=== PATIENT | female | born 1960 | race Caucasian/White ===

== ENCOUNTER 2018-06-26 08:10 | Day surgery (SDC) | payer OTHER ==
[2018-06-23 11:18] VITALS: BMI 34.3
[2018-06-26] MEDS ORDERED: PROPOFOL 200 MG/20 ML VIAL ONE (15:27)
--- NOTE | 2018-06-26 17:23 | OP ---
DATE OF PROCEDURE: 06/26/2018 PREPROCEDURE DIAGNOSES: 1. Cirrhosis, history of variceal bleeding few months ago, here for followup esophagogastroduodenoscopy and secondary prophylaxis banding if indicated. 2. Screening colonoscopy. POSTPROCEDURE DIAGNOSES: 1. No evidence of esophageal varices. 2. Portal gastropathy, nonbleeding. 3. Normal duodenum. 4. No evidence of gastric varices. 5. Colonoscopy notable for diminutive polyp in the sigmoid colon removed by hot snare polypectomy, but not retrieved secondary to poor prep. 6. Poor prep limiting evaluation to about two-thirds of the colon, could not rule out lesions in the other areas. These areas were contaminated with which could not be suctioned or irrigated from the colon. RECOMMENDATIONS: 1. Repeat colonoscopy in 1 year. 2. Repeat EGD in 6 months. 3. Follow up in the office in 1 month. 4. Acute followup with [facility], Dr. Lee as already scheduled. 5. Continues present medications. PROCEDURE IN DETAIL: The patient was informed of the risks, benefits, and possible complications of endoscopy including perforation, reaction for medication, and aspiration. Informed consent was obtained. The patient was brought to the endoscopy suite, where she was sedated by anesthesia. Once she was comfortable, a bite block was placed inside her orifice. The endoscope was advanced to the esophagus, stomach, and second and third portion of the duodenum and slowly removed. The esophagus notable for some scars in the lower esophagus, but no overt varices. The stomach was entered and found to show signs of portal hypertensive gastropathy with snake skinning of the mucosa. There was no bleeding or oozing with contact or spontaneously. Retroflexed views revealed no evidence of varices. The pyloric channel was entered. The duodenum was found to be normal at third portion. The scope was then brought back into the stomach and the stomach was again surveyed in forward and retroflexed views. These were normal except for the portal gastropathy and the scope was removed. The patient was turned to the room and rectal examination was performed, which was normal. The endoscope was advanced to the anal canal through the colon to the cecum, which was identified by the appendiceal orifice and the ileocecal valve. The prep was poor. Attempts at irrigation with a liter of fluid were unsuccessful as there was quite a bit of formed material, which just could not be suctioned away. One polyp was seen in the sigmoid colon and removed by snare polypectomy. It was notably retrieved. It was about 3 mm in size. Retroflexed views just showed contamination of stool in the bowel. The scope was removed. The patient tolerated the procedure well. There were no complications. Job ID: [id number]
== END 2018-06-26 11:52 | disposition home or self-care (01) ==
LOC: SDC 08:10
PROVIDERS: ATTEND Internal Medicine Gastroenterology
PROC: 0DJ08ZZ Inspection of Upper Intestinal Tract, Via Natural or Artificial Opening Endoscopic (ICD-10-PCS; principal; 2018-06-26)
PROC: 0DBN8ZX Excision of Sigmoid Colon, Via Natural or Artificial Opening Endoscopic, Diagnostic (ICD-10-PCS; principal; 2018-06-26)
DX: Z12.11 Encounter for screening for malignant neoplasm of colon (principal); K63.5 Polyp of colon; K70.30 Alcoholic cirrhosis of liver without ascites; K76.6 Portal hypertension; K31.89 Other diseases of stomach and duodenum; G89.29 Other chronic pain; M54.9 Dorsalgia, unspecified; E11.9 Type 2 diabetes mellitus without complications; E89.0 Postprocedural hypothyroidism; I50.9 Heart failure, unspecified; K72.90 Hepatic failure, unspecified without coma; Z87.891 Personal history of nicotine dependence; Z88.8 Allergy status to other drugs, medicaments and biological substances; Z79.4 Long term (current) use of insulin; Z79.899 Other long term (current) drug therapy; Z95.0 Presence of cardiac pacemaker

== ENCOUNTER 2018-06-29 09:23 | Outpatient (CLI) | payer OTHER ==
--- NOTE | 2018-06-29 10:50 | ULT ---
US Hepatic Doppler History: [Cirrhosis] Comparison: Real-time grayscale, color, and spectral analysis of the liver was performed Findings: . The hepatic echotexture is heterogeneous with a nodular contour. This portion of the panc reas is unremarkable. There is normal directional flow within the portal veins and hepatic veins. No hepatic mass. Hepatic artery is patent with adequate flow and normal phasicity. Gallbladder wall thickness is normal. Spleen is enlarged measuring 16.5 cm in length. Slight artery a nd vein are patent. Impression: Hepatic cirrhosis and portal hypertension.
== END 2018-06-29 09:24 | disposition home or self-care (01) ==
LOC: SCSULT 09:23
PROVIDERS: ATTEND Internal Medicine Gastroenterology
DX: K70.30 Alcoholic cirrhosis of liver without ascites (principal); K76.6 Portal hypertension
CPT/HCPCS: 76705

== ENCOUNTER 2018-09-14 10:39 | Outpatient (CLI) | payer OTHER ==
--- NOTE | 2018-09-14 11:50 | ULT ---
ULTRASOUND HEPATIC DOPPLER: Date: 09/14/18 HISTORY: Cirrhosis of the liver. Nonalcoholic steatohepatitis. COMPARISON: 06/29/18. FINDINGS: The liver demonstrates heterogeneous echotexture with a nodular contour consistent with cirrhosis. Th e spleen is enlarged, measuring 16.3 cm in length. No gallstones or pericholecystic fluid seen. There is thickening of the wall of the gallbladder measuring 4.6 mm. The common duct measures 6 mm in diam eter. The pancreas has a normal appearance. There is normal flow and spectral waveforms in the hepatic, portal, and splenic vasculature. IMPRESSION: 1. Hepatic cirrhosis. 2. Splenomegaly. 3. Thickened gallbladder wall. POS: OFF
== END 2018-09-14 10:40 | disposition home or self-care (01) ==
LOC: SCSULT 10:39
PROVIDERS: ATTEND Nurse Practitioner Family
DX: K75.81 Nonalcoholic steatohepatitis (NASH) (principal); K74.69 Other cirrhosis of liver; R16.1 Splenomegaly, not elsewhere classified; K82.8 Other specified diseases of gallbladder
CPT/HCPCS: 76705

== ENCOUNTER 2019-08-23 14:55 | Outpatient (CLI) | payer OTHER | END 2019-08-23 14:56 | disposition home or self-care (01) | LOC: ULT 14:55 | PROVIDERS: ATTEND Family Medicine | DX: I50.9 Heart failure, unspecified (principal); I51.89 Other ill-defined heart diseases; I08.3 Combined rheumatic disorders of mitral, aortic and tricuspid valves; I37.1 Nonrheumatic pulmonary valve insufficiency; I51.7 Cardiomegaly | CPT/HCPCS: 93306 ==

== ENCOUNTER 2020-07-31 14:58 | Outpatient (CLI) | payer OTHER ==
[2020-08-01 01:47] LABS: SARS-CoV-2 PCR by NAA Not Detected (NotDetected)
== END 2020-07-31 14:59 | disposition home or self-care (01) ==
LOC: LABBT 14:58
PROVIDERS: ATTEND Internal Medicine Gastroenterology
DX: Z01.812 Encounter for preprocedural laboratory examination (principal); I50.9 Heart failure, unspecified; K72.90 Hepatic failure, unspecified without coma; I85.00 Esophageal varices without bleeding; Z86.010 Personal history of colon polyps; Z20.822 Contact with and (suspected) exposure to COVID-19
CPT/HCPCS: 87635; U0003; U0005

== ENCOUNTER 2022-04-22 09:13 | Day surgery (SDC) | payer MEDICARE, OTHER ==
[2022-04-21 10:21] VITALS: BMI 38.9
[2022-04-22] MEDS ORDERED: Sodium Bicarbonate 2.5 MEQ/5 ML VIAL ONE (09:40)
[2022-04-22] MEDS ORDERED: Lorazepam 1 MG TAB ONE (09:40)
[2022-04-22] MEDS ORDERED: Lidocaine 1% PF 5 ML VIAL ONE (09:40)
[2022-04-22] MEDS ORDERED: Albumin 25% 200 ML ONE (10:08)
[2022-04-22 12:01] VITALS: BP 121/61; TEMP 98.8
[2022-04-22] MEDS ORDERED: FLU VACC QS2022-23(6MOS UP)/PF 60 MCG/0.5 ML SYRINGE IM ONE (18:00)
== END 2022-04-22 11:24 | disposition home or self-care (01) ==
LOC: ULT 09:13
PROVIDERS: ATTEND Physician Assistant Medical
PROC: 0W9G3ZZ Drainage of Peritoneal Cavity, Percutaneous Approach (ICD-10-PCS; principal; 2022-04-22)
DX: K70.31 Alcoholic cirrhosis of liver with ascites (principal); R16.1 Splenomegaly, not elsewhere classified; K83.8 Other specified diseases of biliary tract; K82.8 Other specified diseases of gallbladder; K76.82 Hepatic encephalopathy; Z95.810 Presence of automatic (implantable) cardiac defibrillator
CPT/HCPCS: 49083; 76705; P9047

== ENCOUNTER 2022-04-30 06:30 | Day surgery (SDC) | payer MEDICARE, MEDICAID ==
[2022-04-28 12:24] VITALS: BMI 34.3
[2022-04-30] MEDS ORDERED: Lidocaine 1% PF 5 ML VIAL ONE (08:23)
[2022-04-30] MEDS ORDERED: PROPOFOL 200 MG/20 ML VIAL ONE (08:23)
== END 2022-04-30 10:11 | disposition home or self-care (01) ==
LOC: SDC 06:30
PROVIDERS: ATTEND Internal Medicine Gastroenterology
PROC: 0DJ08ZZ Inspection of Upper Intestinal Tract, Via Natural or Artificial Opening Endoscopic (ICD-10-PCS; principal; 2022-04-30)
DX: K70.31 Alcoholic cirrhosis of liver with ascites (principal); I85.10 Secondary esophageal varices without bleeding; K76.6 Portal hypertension; K31.89 Other diseases of stomach and duodenum; K72.90 Hepatic failure, unspecified without coma; K76.82 Hepatic encephalopathy; E89.0 Postprocedural hypothyroidism; G89.29 Other chronic pain; M54.9 Dorsalgia, unspecified; I50.9 Heart failure, unspecified; E11.9 Type 2 diabetes mellitus without complications; Z87.891 Personal history of nicotine dependence; Z79.4 Long term (current) use of insulin; Z79.84 Long term (current) use of oral hypoglycemic drugs; Z79.899 Other long term (current) drug therapy; Z88.8 Allergy status to other drugs, medicaments and biological substances; Z91.048 Other nonmedicinal substance allergy status; Z95.810 Presence of automatic (implantable) cardiac defibrillator
CPT/HCPCS: 36416; J2704

== ENCOUNTER 2022-05-07 09:03 | Day surgery (SDC) | payer MEDICARE, OTHER ==
[2022-05-07] MEDS ORDERED: Lidocaine 1% PF 5 ML VIAL ONE (09:12)
[2022-05-07] MEDS ORDERED: Sodium Bicarbonate 2.5 MEQ/5 ML VIAL ONE (09:12)
[2022-05-07] MEDS ORDERED: Albumin 25% 200 ML ONE (09:12)
[2022-05-07 13:06] VITALS: BP 118/51
== END 2022-05-07 11:35 | disposition home or self-care (01) ==
LOC: ULT 09:03
PROVIDERS: ATTEND Physician Assistant Medical
PROC: 0W9G3ZZ Drainage of Peritoneal Cavity, Percutaneous Approach (ICD-10-PCS; principal; 2022-05-07)
DX: R18.8 Other ascites (principal); Z88.8 Allergy status to other drugs, medicaments and biological substances; Z91.048 Other nonmedicinal substance allergy status
CPT/HCPCS: 49083; P9047

== ENCOUNTER 2022-05-13 09:01 | Day surgery (SDC) | payer MEDICARE, MEDICAID ==
[2022-05-11 08:15] VITALS: BMI 38.9
[2022-05-13] MEDS ORDERED: Albumin 25% 200 ML ONE (09:26)
[2022-05-13] MEDS ORDERED: Lidocaine 1% PF 5 ML VIAL ONE (09:26)
[2022-05-13] MEDS ORDERED: Sodium Bicarbonate 2.5 MEQ/5 ML VIAL ONE (09:26)
[2022-05-13 11:21] VITALS: BP 123/65; TEMP 98
[2022-05-13] MEDS ORDERED: FLU VACC QS2022-23(6MOS UP)/PF 60 MCG/0.5 ML SYRINGE IM ONE (11:45)
== END 2022-05-13 10:57 | disposition home or self-care (01) ==
LOC: ULT 09:01
PROVIDERS: ATTEND Physician Assistant Medical
PROC: 0W9G3ZZ Drainage of Peritoneal Cavity, Percutaneous Approach (ICD-10-PCS; principal; 2022-05-13)
DX: R18.8 Other ascites (principal); Z79.4 Long term (current) use of insulin; Z79.84 Long term (current) use of oral hypoglycemic drugs; Z79.899 Other long term (current) drug therapy; Z88.8 Allergy status to other drugs, medicaments and biological substances; Z91.048 Other nonmedicinal substance allergy status
CPT/HCPCS: 49083; P9047

== ENCOUNTER 2022-05-21 13:28 | Day surgery (SDC) | payer MEDICARE, MEDICAID ==
[2022-05-21 13:55] LABS: INR-International Normal Ratio 1.3; PTT 36.5 sec (22.9-36.1); Prothrombin Time 16.8 sec (12.0-14.7)
[2022-05-21 14:19] LABS: #Basophils 0.1 thou/uL (0.0-0.2); #Eosinphils 0.2 thou/uL (0.0-0.7); #Lymphocytes 0.9 thou/uL (1.20-3.40); #Monocytes 0.9 thou/uL (0.11-0.59); #Neutrophils 5.4 thou/uL (1.40-6.50); %Basophils 1.7 % (0.0-1.0); %Eosinophils 2.8 % (0.0-10.0); %Monocytes 12.1 % (0.0-10.0); %Neutrophils 71.5 % (42.0-75.0); Hemoglobin 13.2 g/dL (12.0-16.0); Large Platelets SLIGHT; MDiff Complete? YES; Mean Corpuscular HGB CONC 33.7 g/dL (32.0-36.0); Mean Corpuscular Hemoglobin 33.3 pg (27.0-31.0); Mean Corpuscular Volume 98.8 fl (78.0-98.0); Platelet Count 26 10x3/uL (130-400); Platelet Morphology Comment Appears Decreased; RBC Distribution Width 14.3 % (11.5-14.5); RBC Morphology Normal; Red Blood Cell (RBC) Count 3.95 mill/uL (4.20-5.40); Reflex for Review?? NO; White Blood Cell (WBC) Count 7.5 10x3/uL (4.8-10.8)
[2022-05-21] MEDS ORDERED: Midazolam HCl 2 mg/2 ml Vial ONE (14:25)
[2022-05-21] MEDS ORDERED: Albumin 25% 200 ML ONE (14:25)
[2022-05-21] MEDS ORDERED: Sodium Bicarbonate 2.5 MEQ/5 ML VIAL ONE (14:26)
[2022-05-21] MEDS ORDERED: Lidocaine 1% PF 5 ML VIAL ONE (14:26)
[2022-05-21] MEDS ORDERED: Albumin 25% 25 GM/100 ML BOT IVPB SCH (16:15)
[2022-05-21 16:37] VITALS: BP 111/50
== END 2022-05-21 16:30 | disposition short-term general hospital (02) ==
LOC: ULT 13:28
PROVIDERS: ATTEND Physician Assistant Medical
PROC: 0W9G3ZZ Drainage of Peritoneal Cavity, Percutaneous Approach (ICD-10-PCS; principal; 2022-05-21)
DX: R18.8 Other ascites (principal); Z88.8 Allergy status to other drugs, medicaments and biological substances; Z91.048 Other nonmedicinal substance allergy status
CPT/HCPCS: 49083; 85025; 85610; 85730; P9047; 36415; J2250

== ENCOUNTER 2022-05-21 16:26 | Emergency (ER) | payer MEDICARE, MEDICAID ==
[2022-05-21 19:32] LABS: #Basophils 0.1 thou/uL (0.0-0.2); #Eosinphils 0.2 thou/uL (0.0-0.7); #Lymphocytes 0.8 thou/uL (1.20-3.40); #Monocytes 0.8 thou/uL (0.11-0.59); #Neutrophils 4.1 thou/uL (1.40-6.50); %Basophils 1.7 % (0.0-1.0); %Eosinophils 3.4 % (0.0-10.0); %Lymphocytes 12.8 % (21.0-51.0); %Monocytes 13.7 % (0.0-10.0); %Neutrophils 68.4 % (42.0-75.0); Hemoglobin 12.1 g/dL (12.0-16.0); Mean Corpuscular HGB CONC 34.6 g/dL (32.0-36.0); Mean Corpuscular Hemoglobin 33.9 pg (27.0-31.0); Mean Corpuscular Volume 98.1 fl (78.0-98.0); Platelet Count 20 10x3/uL (130-400); RBC Distribution Width 14.5 % (11.5-14.5); Red Blood Cell (RBC) Count 3.58 mill/uL (4.20-5.40)
[2022-05-21] MEDS ORDERED: Ondansetron PF 4 MG/2 ML Vial ONE (19:40)
[2022-05-21] MEDS ORDERED: Morphine 4 MG/ML VIAL ONE (19:40)
[2022-05-21 19:41] LABS: INR-International Normal Ratio 1.5; PTT 38.2 sec (22.9-36.1); Prothrombin Time 18.4 sec (12.0-14.7)
[2022-05-21 19:50] LABS: ALT (SGPT) 35 U/L (8-55); AST (SGOT) 72 U/L (5-34); Albumin 3.5 g/dL (3.5-5.0); Alkaline Phosphatase 256 U/L (40-110); Anion Gap 12 mmol/L (10-20); BUN (Urea Nitrogen) 22 mg/dL (9.8-20.1); Bilirubin, Total 3.1 mg/dL (0.2-1.2); Calc. Creatinine Clearance 0 mL/min (70-130); Calcium 9.1 mg/dL (7.8-10.44); Carbon Dioxide 22 mmol/L (22-29); Chloride 102 mmol/L (98-107); Estimated GFR 62; Glucose 300 mg/dL (70-105); Lipase 64 U/L (8-78); Potassium 3.3 mmol/L (3.5-5.1); Protein, Total 6.5 g/dL (6.0-8.3); Sodium 133 mmol/L (136-145)
[2022-05-21 20:49] LABS: SARS-CoV-2 NAA Rapid Test Not Detected (NotDetected)
== END 2022-05-21 21:38 | disposition left against medical advice (07) ==
LOC: ERS 16:26
DX: R53.1 Weakness (principal); R62.7 Adult failure to thrive; R29.6 Repeated falls; E78.00 Pure hypercholesterolemia, unspecified; E11.9 Type 2 diabetes mellitus without complications; F17.210 Nicotine dependence, cigarettes, uncomplicated; Z20.822 Contact with and (suspected) exposure to COVID-19
CPT/HCPCS: 70450; 71101; 80053; 82140; 83690; 83880; 84484; 85025; 85610; 85730; 93005; 96374; 96375; 99285; U0002; 36415; J2270; J2405

== ENCOUNTER 2022-05-28 09:47 | Day surgery (SDC) | payer MEDICARE, MEDICAID ==
[2022-05-26 08:56] VITALS: BMI 38.9
[2022-05-28] MEDS ORDERED: Lidocaine 1% PF 5 ML VIAL ONE (10:04)
[2022-05-28] MEDS ORDERED: Sodium Bicarbonate 2.5 MEQ/5 ML VIAL ONE (10:04)
[2022-05-28] MEDS ORDERED: Albumin 25% 200 ML ONE (10:04)
[2022-05-28] MEDS ORDERED: Albumin 25% 25 GM/100 ML BOT IVPB SCH (11:00)
[2022-05-28 14:56] VITALS: BP 121/57
== END 2022-05-28 12:15 | disposition home or self-care (01) ==
LOC: ULT 09:47
PROVIDERS: ATTEND Physician Assistant Medical
PROC: 0W9G3ZZ Drainage of Peritoneal Cavity, Percutaneous Approach (ICD-10-PCS; principal; 2022-05-28)
DX: K70.31 Alcoholic cirrhosis of liver with ascites (principal); K76.82 Hepatic encephalopathy; I85.10 Secondary esophageal varices without bleeding; Z88.8 Allergy status to other drugs, medicaments and biological substances; Z91.048 Other nonmedicinal substance allergy status
CPT/HCPCS: 49083; P9047

== ENCOUNTER → 2022-06-18 | Day surgery (SDC) | payer MEDICARE, MEDICAID ==
[~2022-06-18] MED LIST: Albumin 25% 200 ML ONE; FLU VACC QS2022-23(6MO UP)/PF 60 MCG/0.5 ML SYRINGE IM ONE; Lidocaine 1% PF 5 ML VIAL ONE; Sodium Bicarbonate 2.5 MEQ/5 ML VIAL ONE
== END | disposition home or self-care (01) ==
LOC: ULT 11:51
PROVIDERS: ATTEND Physician Assistant Medical
PROC: 0W9G3ZZ Drainage of Peritoneal Cavity, Percutaneous Approach (ICD-10-PCS; principal; 2022-06-18)
DX: K70.31 Alcoholic cirrhosis of liver with ascites (principal); I85.10 Secondary esophageal varices without bleeding; K76.82 Hepatic encephalopathy; Z88.8 Allergy status to other drugs, medicaments and biological substances; Z91.048 Other nonmedicinal substance allergy status
CPT/HCPCS: 49083; 90686; G0008; P9047; 90471

== ENCOUNTER → 2022-06-24 | Day surgery (SDC) | payer MEDICARE, MEDICAID ==
[2022-06-24 12:30] LABS: #Basophils 0.1 thou/uL (0.0-0.2); #Eosinphils 0.2 thou/uL (0.0-0.7); #Lymphocytes 1.1 thou/uL (1.20-3.40); #Monocytes 0.7 thou/uL (0.11-0.59); #Neutrophils 4.5 thou/uL (1.40-6.50); %Basophils 1.7 % (0.0-1.0); %Eosinophils 3.7 % (0.0-10.0); %Lymphocytes 16.8 % (21.0-51.0); %Monocytes 10.4 % (0.0-10.0); %Neutrophils 67.4 % (42.0-75.0); Hemoglobin 13.5 g/dL (12.0-16.0); Mean Corpuscular HGB CONC 33.9 g/dL (32.0-36.0); Mean Corpuscular Hemoglobin 33.7 pg (27.0-31.0); Mean Corpuscular Volume 99.4 fl (78.0-98.0); Mean Platelet Volume 12.3 fL (7.4-10.4); Platelet Count 30 10x3/uL (130-400); RBC Distribution Width 13.6 % (11.5-14.5); Red Blood Cell (RBC) Count 4.01 mill/uL (4.20-5.40); White Blood Cell (WBC) Count 6.7 10x3/uL (4.8-10.8)
[2022-06-24 12:39] LABS: INR-International Normal Ratio 1.5; PTT 37.9 sec (22.9-36.1); Prothrombin Time 18.3 sec (12.0-14.7)
== END | disposition home or self-care (01) ==
LOC: ULT 12:10
PROVIDERS: ATTEND Physician Assistant Medical
PROC: 0W9G3ZZ Drainage of Peritoneal Cavity, Percutaneous Approach (ICD-10-PCS; principal; 2022-06-24)
DX: R18.8 Other ascites (principal); Z88.8 Allergy status to other drugs, medicaments and biological substances; Z91.048 Other nonmedicinal substance allergy status
CPT/HCPCS: 49083; 85025; 85610; 85730

== ENCOUNTER 2022-07-02 11:37 | Day surgery (SDC) | payer MEDICARE, MEDICAID ==
[2022-07-01 13:13] VITALS: BMI 38.9
[2022-07-02] MEDS ORDERED: Sodium Bicarbonate 2.5 MEQ/5 ML VIAL ONE (12:00)
[2022-07-02] MEDS ORDERED: Lidocaine 1% PF 5 ML VIAL ONE (12:00)
[2022-07-02] MEDS ORDERED: Albumin 25% 200 ML ONE (12:03)
[2022-07-02 14:15] VITALS: BP 137/62; TEMP 98.5
== END 2022-07-02 13:50 | disposition home or self-care (01) ==
LOC: ULT 11:37
PROVIDERS: ATTEND Physician Assistant Medical
PROC: 0W9G3ZZ Drainage of Peritoneal Cavity, Percutaneous Approach (ICD-10-PCS; principal; 2022-07-02)
DX: R18.8 Other ascites (principal); Z88.8 Allergy status to other drugs, medicaments and biological substances; Z91.048 Other nonmedicinal substance allergy status
CPT/HCPCS: 49083; P9047

== ENCOUNTER 2022-07-09 12:03 | Day surgery (SDC) | payer MEDICARE, MEDICAID ==
[2022-07-09] MEDS ORDERED: Sodium Bicarbonate 2.5 MEQ/5 ML VIAL ONE (12:16)
[2022-07-09] MEDS ORDERED: Lidocaine 1% PF 5 ML VIAL ONE (12:16)
[2022-07-09] MEDS ORDERED: Albumin 25% 200 ML ONE (12:16)
== END 2022-07-09 13:58 | disposition home or self-care (01) ==
LOC: ULT 12:03
PROVIDERS: ATTEND Physician Assistant Medical
PROC: 0W9G3ZZ Drainage of Peritoneal Cavity, Percutaneous Approach (ICD-10-PCS; principal; 2022-07-09)
DX: K70.31 Alcoholic cirrhosis of liver with ascites (principal); K76.82 Hepatic encephalopathy; Z88.8 Allergy status to other drugs, medicaments and biological substances; Z91.048 Other nonmedicinal substance allergy status; Z95.810 Presence of automatic (implantable) cardiac defibrillator
CPT/HCPCS: 49083; P9047

== ENCOUNTER 2022-07-22 18:37 | Inpatient (IN) | payer MEDICARE, MEDICAID ==
[2022-07-22 19:43] LABS: #Basophils 0.1 thou/uL (0.0-0.2); #Eosinphils 0.2 thou/uL (0.0-0.7); #Lymphocytes 1.1 thou/uL (1.20-3.40); #Monocytes 0.7 thou/uL (0.11-0.59); #Neutrophils 4.4 thou/uL (1.40-6.50); %Basophils 0.8 % (0.0-1.0); %Eosinophils 2.8 % (0.0-10.0); %Lymphocytes 17.6 % (21.0-51.0); %Monocytes 11.2 % (0.0-10.0); %Neutrophils 67.6 % (42.0-75.0); Hemoglobin 14.8 g/dL (12.0-16.0); Mean Corpuscular Hemoglobin 33.3 pg (27.0-31.0); Mean Corpuscular Volume 98.2 fl (78.0-98.0); Platelet Count 35 10x3/uL (130-400); RBC Distribution Width 14.8 % (11.5-14.5); Red Blood Cell (RBC) Count 4.44 mill/uL (4.20-5.40); White Blood Cell (WBC) Count 6.5 10x3/uL (4.8-10.8)
[2022-07-22 19:51] LABS: INR-International Normal Ratio 1.4; Prothrombin Time 17.2 sec (12.0-14.7)
[2022-07-22 19:53] LABS: Actual Bicarbonate (HCO3v) 15.7 mEq/L (22-28); Analyzer IN Cardio ER; Calcium, Ionized (venous) 0.98 mmol/L (1.16-1.32); Chloride (VBG) 109 mmol/L (98-106); Hematocrit-VBG 46 % (36.0-47.0); Hemoglobin (Hb) 15.5 g/dL (11.7-16.0); Potassium (VBG) 4.04 mmol/L (3.70-5.30); Sodium 135.8 mmol/L (133-146); pH (venous) 7.449 (7.32-7.43)
[2022-07-22 20:09] LABS: ALT (SGPT) 34 U/L (8-55); AST (SGOT) 57 U/L (5-34); Acetaminophen Less than 10.0 mcg/mL (10.0-30.0); Albumin 2.9 g/dL (3.5-5.0); Alcohol Less than 10 mg/dL (Less than 10); Alkaline Phosphatase 244 U/L (40-110); Anion Gap 17 mmol/L (10-20); BUN (Urea Nitrogen) 35 mg/dL (9.8-20.1); Bilirubin, Total 5.3 mg/dL (0.2-1.2); Calc. Creatinine Clearance 0 mL/min (70-130); Calcium 8.9 mg/dL (7.8-10.44); Carbon Dioxide 18 mmol/L (22-29); Chloride 109 mmol/L (98-107); Estimated GFR 29; Globulin 3.5 g/dL (2.4-3.5); Glucose 182 mg/dL (70-105); Potassium 4.1 mmol/L (3.5-5.1); Protein, Total 6.4 g/dL (6.0-8.3); Salicylate Less than 8.0 mg/dL (15.0-30.0); Sodium 140 mmol/L (136-145)
[2022-07-22 20:21] LABS: CKMB 8.1 ng/mL (0-6.6)
[2022-07-22 22:14] LABS: Amphetamine Not Detected (NotDetected); Barbiturates Screen Not Detected (NotDetected); Benzodiazepine Screen Not Detected (NotDetected); Cocaine Metabolite Screen Not Detected (NotDetected); Methadone Not Detected (NotDetected); Methamphetamine Not Detected (NotDetected); Opiate Screen Not Detected (NotDetected); Oxycodone Screen Not Detected (NotDetected); Phencyclidine (PCP) Not Detected (NotDetected); THC/Cannabinoid Screen Not Detected (NotDetected); Tricyclic Screen Not Detected (NotDetected)
[2022-07-22] MEDS ORDERED: Cefepime 2 GM VIAL ONE (22:32)
[2022-07-22 22:33] LABS: Bacteria/HPF 3+ HPF (None Seen); Bilirubin Negative (Negative); Blood, Urine Negative (Negative); Clarity Turbid (Clear); Glucose, Urine (Dipstick) Normal (Negative); Ketone, Urine Negative (Negative); Leukocyte 75 Leu/uL (Negative); Nitrite Negative (Negative); Protein, Urine (Dipstick) 10 mg/dL (Neg-Trace); RBC/HPF 0-3 HPF (0-3); Specific Gravity, Urine 1.015 (1.002-1.036); Squamous Epithelial 0-3 HPF (0-3); pH, Urine 5.5 (5.0-9.0)
[2022-07-22 22:44] LABS: Lactic Acid 3.1 mmol/L (0.5-2.2)
[2022-07-22] MEDS ORDERED: Amiodarone 150 MG/3 ML VIAL ONE ×2 (23:04→23:24)
[2022-07-22 23:16] LABS: Magnesium 1.8 mg/dL (1.6-2.6)
[2022-07-23 01:55] VITALS: BMI 32.3
[2022-07-23] MEDS ORDERED: Electrolyte Replacement Protocol 1 EACH FS SCH (02:04)
[2022-07-23] MEDS ORDERED: Cyclobenzaprine 10 MG TAB PO PRN (02:13)
[2022-07-23] MEDS ORDERED: Magnesium 2 GM/50 ML(in water) 2 GM in Premix Bag 1 BAG IVPB SCH ×2 (02:15→08:00)
[2022-07-23] MEDS ORDERED: Dextrose 5% in Water 1,000 ML IV PRN (02:16)
[2022-07-23] MEDS ORDERED: Dextrose 50% Abboject 50 ML SYRINGE SLOW IVP PRN (02:16)
[2022-07-23] MEDS ORDERED: HumaLOG 300 UNITS/3 ML VIAL SC PRN ×2 (02:16)
[2022-07-23] MEDS ORDERED: Morphine 2 MG/ML VIAL SLOW IVP PRN (02:53)
[2022-07-23 07:02] LABS: INR-International Normal Ratio 1.4; Prothrombin Time 17.3 sec (12.0-14.7)
[2022-07-23 07:03] LABS: PTT 37.8 sec (22.9-36.1)
[2022-07-23 07:06] LABS: #Basophils 0.1 thou/uL (0.0-0.2); #Eosinphils 0.3 thou/uL (0.0-0.7); #Lymphocytes 1.3 thou/uL (1.20-3.40); #Monocytes 0.8 thou/uL (0.11-0.59); #Neutrophils 3.5 thou/uL (1.40-6.50); %Basophils 1.3 % (0.0-1.0); %Lymphocytes 21.4 % (21.0-51.0); %Monocytes 12.8 % (0.0-10.0); %Neutrophils 59.5 % (42.0-75.0); Hemoglobin 13.2 g/dL (12.0-16.0); Mean Corpuscular HGB CONC 31.2 g/dL (32.0-36.0); Mean Corpuscular Hemoglobin 31.3 pg (27.0-31.0); Mean Platelet Volume 13.1 fL (7.4-10.4); Platelet Count 37 10x3/uL (130-400); RBC Distribution Width 15.1 % (11.5-14.5); Red Blood Cell (RBC) Count 4.22 mill/uL (4.20-5.40); White Blood Cell (WBC) Count 5.9 10x3/uL (4.8-10.8)
[2022-07-23 07:12] LABS: ALT (SGPT) 32 U/L (8-55); AST (SGOT) 55 U/L (5-34); Albumin 2.7 g/dL (3.5-5.0); Alkaline Phosphatase 194 U/L (40-110); Anion Gap 16 mmol/L (10-20); BUN (Urea Nitrogen) 32 mg/dL (9.8-20.1); Bilirubin, Total 6.1 mg/dL (0.2-1.2); Calc. Creatinine Clearance 45 mL/min (70-130); Calcium 8.6 mg/dL (7.8-10.44); Carbon Dioxide 16 mmol/L (22-29); Chloride 111 mmol/L (98-107); Estimated GFR 32; Globulin 3.5 g/dL (2.4-3.5); Glucose 181 mg/dL (70-105); Potassium 3.8 mmol/L (3.5-5.1); Protein, Total 6.2 g/dL (6.0-8.3); Sodium 139 mmol/L (136-145)
[2022-07-23] MEDS: metFORMIN 500 MG TAB PO SCH ×2 (08:30→17:21)
[2022-07-23] MEDS: Pregabalin 50 MG CAP PO SCH (08:30)
[2022-07-23] MEDS: Cefepime 1 GM in Sodium Chloride 0.9% 100 ML IVPB SCH ×2 (08:30→20:24)
[2022-07-23] MEDS: Insulin Glargine 30 UNITS/0.3 ML VIAL SC SCH ×2 (08:31→21:10)
[2022-07-23] MEDS: Furosemide 40 MG TAB PO SCH (08:31)
[2022-07-23] MEDS: Spironolactone 100 MG TAB PO SCH (08:31)
[2022-07-23] MEDS: DULoxetine 60 MG CAP PO SCH ×2 (08:31→20:55)
[2022-07-23] MEDS: Propranolol 10 MG TAB PO SCH ×2 (08:50→21:10)
[2022-07-23] MEDS ORDERED: Famotidine/PF 20 mg/2ml Vial SLOW IVP SCH (09:00)
[2022-07-23 09:52] LABS: Creatinine, Urine 118.64 mg/dL (47-110); Sodium, Urine Less than 20 mmol/L (Not Available); Urea Nitrogen, Random Urine 675 mg/dl
[2022-07-23] MEDS ORDERED: Albumin 25% 100 ML ONE (13:58)
[2022-07-23] MEDS ORDERED: Albumin 25% 25 GM/100 ML BOT IVPB SCH ×2 (14:00→14:45)
[2022-07-23 14:34] LABS: RBC Count-Automated (BF) 280 /cu.mm; WBC/Nucleated-Auto (BF) 58 /cu.mm
[2022-07-23 15:06] LABS: BF Color Yellow; Body Fluid Source Paracentesis Fluid; Clarity Clear (Clear); Tube # EDTA
[2022-07-23 15:08] LABS: BF Segmented Neutrophils 14 %; Cell Count Non Hematic 76 %; Lymphocytes 10 %
[2022-07-23 15:30] LABS: Lactic Acid 2.1 mmol/L (0.5-2.2)
[2022-07-23 15:35] LABS: ALT (SGPT) 28 U/L (8-55); AST (SGOT) 47 U/L (5-34); Albumin 2.8 g/dL (3.5-5.0); Alkaline Phosphatase 162 U/L (40-110); Anion Gap 16 mmol/L (10-20); BUN (Urea Nitrogen) 32 mg/dL (9.8-20.1); Bilirubin, Total 5.3 mg/dL (0.2-1.2); Calc. Creatinine Clearance 44 mL/min (70-130); Calcium 8.6 mg/dL (7.8-10.44); Carbon Dioxide 16 mmol/L (22-29); Chloride 112 mmol/L (98-107); Estimated GFR 30; Glucose 158 mg/dL (70-105); Potassium 3.4 mmol/L (3.5-5.1); Protein, Total 5.8 g/dL (6.0-8.3); Sodium 141 mmol/L (136-145)
[2022-07-23 15:37] LABS: Fluid, Bilirubin Total 0.5 mg/dL (Not Available); Fluid, Glucose 192 mg/dL (Not Available); Fluid, LDH 54 U/L (Not Available); Fluid, Protein Less than 1.0 g/dL (Not Available)
[2022-07-23] MEDS: Rifaximin 550 MG TAB PO SCH (20:55)
[2022-07-24] MEDS: Pregabalin 50 MG CAP PO SCH ×3 (00:45→22:38)
[2022-07-24] MEDS ORDERED: Vancomycin 1 GM in Premix Bag 1 BAG IVPB SCH ×2 (02:00→21:00)
[2022-07-24 04:06] LABS: Anion Gap 14 mmol/L (10-20); BUN (Urea Nitrogen) 30 mg/dL (9.8-20.1); Calc. Creatinine Clearance 47 mL/min (70-130); Carbon Dioxide 18 mmol/L (22-29); Chloride 112 mmol/L (98-107); Potassium 4.4 mmol/L (3.5-5.1); Sodium 140 mmol/L (136-145)
[2022-07-24 04:07] LABS: ALT (SGPT) 29 U/L (8-55); AST (SGOT) 45 U/L (5-34); Alkaline Phosphatase 141 U/L (40-110); Bilirubin, Total 5.2 mg/dL (0.2-1.2); Calcium 8.8 mg/dL (7.8-10.44); Estimated GFR 33; Globulin 2.8 g/dL (2.4-3.5); Glucose 155 mg/dL (70-105); Protein, Total 5.8 g/dL (6.0-8.3)
[2022-07-24 04:11] LABS: Mean Corpuscular HGB CONC 32.8 g/dL (32.0-36.0); Mean Corpuscular Hemoglobin 32.8 pg (27.0-31.0); Mean Corpuscular Volume 99.8 fl (78.0-98.0); RBC Distribution Width 14.8 % (11.5-14.5); Red Blood Cell (RBC) Count 3.98 mill/uL (4.20-5.40); White Blood Cell (WBC) Count 5.8 10x3/uL (4.8-10.8)
[2022-07-24 05:03] LABS: #Basophils 0.1 thou/uL (0.0-0.2); #Eosinphils 0.3 thou/uL (0.0-0.7); #Monocytes 0.8 thou/uL (0.11-0.59); #Neutrophils 3.6 thou/uL (1.40-6.50); %Eosinophils 5.1 % (0.0-10.0); %Monocytes 14.1 % (0.0-10.0); %Neutrophils 61.8 % (42.0-75.0); Large Platelets SLIGHT (None Seen); MDiff Complete? YES; Mean Platelet Volume 12.8 fL (7.4-10.4); Platelet Count 32 10x3/uL (130-400); Platelet Morphology Comment Appears Decreased
[2022-07-24] MEDS: traMADol HCl 50 MG TAB PO PRN ×2 (05:49→22:36)
[2022-07-24] MEDS: metFORMIN 500 MG TAB PO SCH (08:42)
[2022-07-24] MEDS: Insulin Glargine 30 UNITS/0.3 ML VIAL SC SCH ×2 (08:42→22:35)
[2022-07-24] MEDS: Cefepime 1 GM in Sodium Chloride 0.9% 100 ML IVPB SCH (08:42)
[2022-07-24] MEDS: Furosemide 40 MG TAB PO SCH (08:42)
[2022-07-24] MEDS: DULoxetine 60 MG CAP PO SCH ×2 (08:42→22:36)
[2022-07-24] MEDS: Spironolactone 100 MG TAB PO SCH (08:42)
[2022-07-24] MEDS: Pantoprazole 40 MG VIAL IVP SCH (08:43)
[2022-07-24] MEDS: Rifaximin 550 MG TAB PO SCH ×2 (08:44→22:40)
[2022-07-24] MEDS: Propranolol 10 MG TAB PO SCH ×2 (08:44→22:39)
[2022-07-24] MEDS: Ampicillin 2 GM in Sodium Chloride 0.9% 100 ML IVPB SCH (22:41)
[2022-07-25] MEDS ORDERED: Vancomycin 1 GM in Premix Bag 1 BAG IVPB SCH (02:00)
[2022-07-25 04:50] LABS: Hemoglobin 13.2 g/dL (12.0-16.0); Mean Corpuscular HGB CONC 33.3 g/dL (32.0-36.0); Mean Corpuscular Volume 99.3 fl (78.0-98.0); RBC Distribution Width 14.5 % (11.5-14.5); White Blood Cell (WBC) Count 6.3 10x3/uL (4.8-10.8)
[2022-07-25 05:00] LABS: ALT (SGPT) 30 U/L (8-55); AST (SGOT) 45 U/L (5-34); Albumin 2.8 g/dL (3.5-5.0); Alkaline Phosphatase 181 U/L (40-110); Anion Gap 12 mmol/L (10-20); BUN (Urea Nitrogen) 28 mg/dL (9.8-20.1); Bilirubin, Total 2.7 mg/dL (0.2-1.2); Calc. Creatinine Clearance 37 mL/min (70-130); Calcium 8.6 mg/dL (7.8-10.44); Carbon Dioxide 17 mmol/L (22-29); Chloride 113 mmol/L (98-107); Estimated GFR 28; Globulin 3.1 g/dL (2.4-3.5); Glucose 136 mg/dL (70-105); Potassium 3.9 mmol/L (3.5-5.1); Protein, Total 5.9 g/dL (6.0-8.3); Sodium 138 mmol/L (136-145)
[2022-07-25] MEDS: Ampicillin 2 GM in Sodium Chloride 0.9% 100 ML IVPB SCH ×2 (06:57→09:34)
[2022-07-25 07:39] LABS: Band 4 % (5-11); Eosinophils 1 % (0-10); Lymphocytes 7 % (21-51); MDiff Complete? YES; Macrocytosis SLIGHT = 6-15 cells (100X) (0-5/hpf); Monocytes 9 % (0-10); Neutrophil 70 % (42-75); Platelet Count 33 10x3/uL (130-400); Platelet Morphology Comment Appears Decreased; Polychromasia SLIGHT = 2-3 cells (100X) (0-2/hpf); Reactive Lymphocytes 8 % (0-10)
[2022-07-25 08:57] VITALS: BP 112/72; TEMP 98.2
[2022-07-25] MEDS: Pregabalin 50 MG CAP PO SCH (09:35)
[2022-07-25] MEDS: Spironolactone 100 MG TAB PO SCH (09:35)
[2022-07-25] MEDS: Propranolol 10 MG TAB PO SCH (09:35)
[2022-07-25] MEDS: Rifaximin 550 MG TAB PO SCH (09:35)
[2022-07-25] MEDS: Furosemide 40 MG TAB PO SCH (09:36)
[2022-07-25] MEDS: DULoxetine 60 MG CAP PO SCH (09:36)
[2022-07-25] MEDS: Insulin Glargine 30 UNITS/0.3 ML VIAL SC SCH (09:36)
[2022-07-25] MEDS: Pantoprazole 40 MG VIAL IVP SCH (09:36)
== END 2022-07-25 10:55 | disposition left against medical advice (07) | DRG 871 ==
LOC: ERS 18:37 → IMCU/EMU 22:54 → 2NO 07-24 16:55
PROVIDERS: ADMIT Family Medicine; ATTEND Family Medicine
PROC: 3E03329 Introduction of Other Anti-infective into Peripheral Vein, Percutaneous Approach (ICD-10-PCS; principal; 2022-07-22)
PROC: 0W9G3ZZ Drainage of Peritoneal Cavity, Percutaneous Approach (ICD-10-PCS; 2022-07-23)
DX: A41.81 Sepsis due to Enterococcus (principal); K72.00 Acute and subacute hepatic failure without coma; I47.20 Ventricular tachycardia, unspecified; N39.0 Urinary tract infection, site not specified; I50.22 Chronic systolic (congestive) heart failure; E87.3 Alkalosis; N17.9 Acute kidney failure, unspecified; I85.10 Secondary esophageal varices without bleeding; K76.82 Hepatic encephalopathy; K70.31 Alcoholic cirrhosis of liver with ascites; E78.00 Pure hypercholesterolemia, unspecified; I11.0 Hypertensive heart disease with heart failure; E11.9 Type 2 diabetes mellitus without complications; F17.210 Nicotine dependence, cigarettes, uncomplicated; D69.6 Thrombocytopenia, unspecified; F41.9 Anxiety disorder, unspecified; F32.A Depression, unspecified; F43.10 Post-traumatic stress disorder, unspecified; G47.00 Insomnia, unspecified; M10.00 Idiopathic gout, unspecified site; I49.3 Ventricular premature depolarization; Z88.8 Allergy status to other drugs, medicaments and biological substances; Z79.4 Long term (current) use of insulin; Z79.84 Long term (current) use of oral hypoglycemic drugs; Z79.899 Other long term (current) drug therapy; Z53.29 Procedure and treatment not carried out because of patient's decision for other reasons
CPT/HCPCS: 36415; 36416; 49083; 70450; 71045; 80053; 80306; 80307; 81003; 81015; 82140; 82150; 82247; 82553; 82570; 82805; 82945; 83605; 83615; 83690; 83735; 84145; 84157; 84300; 84484; 84540; 85025; 85060; 85384; 85610; 85730; 87040; 87070; 87077; 87086; 87149; 87186; 87205; 89051; 93005; C9113; J0282; J0283; J0290; J0692; J1815; J2272; J3370; J3370-JW; J3475; J3490; J7030; P9047; S0028

== ENCOUNTER 2022-07-30 11:55 | Day surgery (SDC) | payer MEDICARE, MEDICAID ==
[2022-07-30] MEDS ORDERED: Albumin 25% 100 ML ONE (12:44)
[2022-07-30] MEDS ORDERED: Lidocaine 1% PF 5 ML VIAL ONE (12:44)
[2022-07-30] MEDS ORDERED: Sodium Bicarbonate 2.5 MEQ/5 ML VIAL ONE (12:44)
[2022-07-30 15:03] VITALS: BP 107/50
== END 2022-07-30 14:45 | disposition home or self-care (01) ==
LOC: ULT 11:55
PROVIDERS: ATTEND Physician Assistant Medical
PROC: 0W9G3ZZ Drainage of Peritoneal Cavity, Percutaneous Approach (ICD-10-PCS; principal; 2022-07-30)
DX: R18.8 Other ascites (principal); Z88.8 Allergy status to other drugs, medicaments and biological substances; Z91.048 Other nonmedicinal substance allergy status
CPT/HCPCS: 49083; P9047

== ENCOUNTER → 2022-09-03 | Day surgery (SDC) | payer MEDICARE, MEDICAID ==
[~2022-09-03] MED LIST changes: -Albumin 25% 200 ML ONE; -FLU VACC QS2022-23(6MO UP)/PF 60 MCG/0.5 ML SYRINGE IM ONE; -Sodium Bicarbonate 2.5 MEQ/5 ML VIAL ONE
== END ==
LOC: ULT 12:09
PROVIDERS: ATTEND Physician Assistant Medical
DX: K70.31 Alcoholic cirrhosis of liver with ascites (principal); Z91.018 Allergy to other foods; Z88.8 Allergy status to other drugs, medicaments and biological substances
CPT/HCPCS: 49083

== ENCOUNTER → 2022-10-01 | Day surgery (SDC) | payer MEDICARE, MEDICAID ==
[~2022-10-01] MED LIST changes: +Albumin 25% 100 ML ONE; +Sodium Bicarbonate 2.5 MEQ/5 ML VIAL ONE
== END ==
LOC: ULT 11:56
PROVIDERS: ATTEND Physician Assistant Medical
DX: R18.8 Other ascites (principal)
CPT/HCPCS: 49083; P9047

== ENCOUNTER 2022-10-22 11:35 | Day surgery (SDC) | payer MEDICARE, MEDICAID ==
[2022-10-22] MEDS ORDERED: Lidocaine 1% PF 5 ML VIAL ONE (12:24)
[2022-10-22] MEDS ORDERED: Sodium Bicarbonate 2.5 MEQ/5 ML VIAL ONE (12:47)
[2022-10-22] MEDS ORDERED: Albumin 25% 200 ML ONE (13:15)
[2022-10-22 15:00] VITALS: BP 123/62
[2022-10-22] MEDS ORDERED: Albumin 25% 25 GM/100 ML BOT IVPB SCH (15:45)
== END 2022-10-22 15:00 | disposition home or self-care (01) ==
LOC: ULT 11:35
PROVIDERS: ATTEND Physician Assistant Medical
PROC: 0W9G30Z Drainage of Peritoneal Cavity with Drainage Device, Percutaneous Approach (ICD-10-PCS; principal; 2022-10-22)
DX: K70.31 Alcoholic cirrhosis of liver with ascites (principal); K72.90 Hepatic failure, unspecified without coma; I85.00 Esophageal varices without bleeding; Z95.810 Presence of automatic (implantable) cardiac defibrillator
CPT/HCPCS: 49083; P9047

== ENCOUNTER 2022-10-29 11:41 | Day surgery (SDC) | payer MEDICARE, MEDICAID ==
[2022-10-29 11:59] LABS: #Basophils 0.2 thou/uL (0.0-0.2); #Eosinphils 0.5 thou/uL (0.0-0.7); #Monocytes 0.9 thou/uL (0.11-0.59); #Neutrophils 5.7 thou/uL (1.40-6.50); %Basophils 2.4 % (0.0-1.0); %Eosinophils 6.1 % (0.0-10.0); %Lymphocytes 8.9 % (21.0-51.0); %Monocytes 10.9 % (0.0-10.0); %Neutrophils 71.2 % (42.0-75.0); Hematocrit 39.2 % (36.0-47.0); Hemoglobin 13.4 g/dL (12.0-16.0); Mean Corpuscular HGB CONC 34.2 g/dL (32.0-36.0); Mean Corpuscular Hemoglobin 32.2 pg (27.0-31.0); Mean Corpuscular Volume 94.2 fl (78.0-98.0); RBC Distribution Width 14.9 % (11.5-14.5); Red Blood Cell (RBC) Count 4.16 mill/uL (4.20-5.40)
[2022-10-29 12:02] LABS: Platelet Count 36 10x3/uL (130-400)
[2022-10-29 12:21] LABS: INR-International Normal Ratio 1.4; PTT 36.3 sec (22.9-36.1); Prothrombin Time 17.6 sec (12.0-14.7)
[2022-10-29] MEDS ORDERED: Sodium Bicarbonate 2.5 MEQ/5 ML VIAL ONE (12:37)
[2022-10-29] MEDS ORDERED: Albumin 25% 200 ML ONE (12:37)
[2022-10-29] MEDS ORDERED: Lidocaine 1% PF 5 ML VIAL ONE (12:37)
[2022-10-29] MEDS ORDERED: Albumin 25% 25 GM/100 ML BOT IVPB SCH (13:30)
[2022-10-29 15:31] VITALS: BP 123/51
== END 2022-10-29 14:30 | disposition home or self-care (01) ==
LOC: ULT 11:41
PROVIDERS: ATTEND Physician Assistant Medical
DX: K70.31 Alcoholic cirrhosis of liver with ascites (principal); K72.90 Hepatic failure, unspecified without coma; I85.00 Esophageal varices without bleeding; Z95.810 Presence of automatic (implantable) cardiac defibrillator
CPT/HCPCS: 49083; 85025; 85610; 85730; P9047

== ENCOUNTER 2022-11-01 18:26 | Inpatient (IN) | payer MEDICARE, MEDICAID ==
[2022-11-01 19:19] LABS: #Basophils 0.2 thou/uL (0.0-0.2); #Eosinphils 0.5 thou/uL (0.0-0.7); #Monocytes 0.7 thou/uL (0.11-0.59); #Neutrophils 5.7 thou/uL (1.40-6.50); %Basophils 2.2 % (0.0-1.0); %Eosinophils 6.5 % (0.0-10.0); %Lymphocytes 9.9 % (21.0-51.0); %Monocytes 9.1 % (0.0-10.0); %Neutrophils 71.8 % (42.0-75.0); Hematocrit 37.9 % (36.0-47.0); Hemoglobin 12.8 g/dL (12.0-16.0); Mean Corpuscular HGB CONC 33.8 g/dL (32.0-36.0); Mean Corpuscular Hemoglobin 31.5 pg (27.0-31.0); Mean Corpuscular Volume 93.3 fl (78.0-98.0); Platelet Count 25 10x3/uL (130-400); RBC Distribution Width 14.7 % (11.5-14.5); Red Blood Cell (RBC) Count 4.06 mill/uL (4.20-5.40); White Blood Cell (WBC) Count 7.9 10x3/uL (4.8-10.8)
[2022-11-01 19:33] LABS: INR-International Normal Ratio 1.3; PTT 33.2 sec (22.9-36.1); Prothrombin Time 17.1 sec (12.0-14.7)
[2022-11-01 19:42] LABS: ALT (SGPT) 21 U/L (8-55); AST (SGOT) 31 U/L (5-34); Albumin 2.9 g/dL (3.4-4.8); Alkaline Phosphatase 274 U/L (40-110); Anion Gap 12 mmol/L (10-20); BUN (Urea Nitrogen) 50 mg/dL (9.8-20.1); CK (CPK) 73 U/L (29-168); Calc. Creatinine Clearance 0 mL/min (70-130); Calcium 8.4 mg/dL (7.8-10.44); Carbon Dioxide 15 mmol/L (23-31); Chloride 105 mmol/L (98-107); Estimated GFR 22; Globulin 3.3 g/dL (2.4-3.5); Lipase 78 U/L (8-78); Magnesium 1.7 mg/dL (1.6-2.6); Potassium 4.4 mmol/L (3.5-5.1); Protein, Total 6.2 g/dL (5.8-8.1); Sodium 128 mmol/L (136-145)
[2022-11-01 19:45] LABS: Troponin I 0.027 ng/mL (< 0.028)
[2022-11-01 20:03] LABS: Glucose 492 mg/dL (80-115)
[2022-11-01 21:42] LABS: Actual Bicarbonate (HCO3v) 16.4 mEq/L (22-28); Base Excess -8.4 mEq/L (-2.0 to +3.0); Calcium, Ionized (venous) 1.08 mmol/L (1.16-1.32); Chloride (VBG) 106 mmol/L (98-106); Hematocrit-VBG 42 % (36.0-47.0); Hemoglobin (Hb) 14.4 g/dL (11.7-16.0); Potassium (VBG) 4.31 mmol/L (3.70-5.30); Sodium 129.7 mmol/L (133-146); pH (venous) 7.328 (7.32-7.43)
[2022-11-01 22:34] LABS: Bacteria/HPF None Seen HPF (None Seen); Bilirubin Negative (Negative); Blood, Urine Negative (Negative); CAUTI Indications for Culture Alt mental st,lethar; Clarity Clear (Clear); Glucose, Urine (Dipstick) 300 mg/dL (Negative); Ketone, Urine Negative (Negative); Leukocyte Negative Leu/uL (Negative); Nitrite Negative (Negative); Protein, Urine (Dipstick) Negative (Neg-Trace); RBC/HPF None Seen HPF (0-3); Specific Gravity, Urine 1.015 (1.002-1.036); Squamous Epithelial 0-3 HPF (0-3); Urobilinogen Normal mg/dL (Less than 2); WBC/HPF 0-3 HPF (0-3)
[2022-11-01 22:37] LABS: Urine Culture Reflex No No
[2022-11-01] MEDS ORDERED: Ketorolac Tromethamine 30 MG/ML VIAL ONE (23:47)
[2022-11-02 03:07] VITALS: BMI 29.8
[2022-11-02 04:06] LABS: #Basophils 0.2 thou/uL (0.0-0.2); #Eosinphils 0.5 thou/uL (0.0-0.7); #Monocytes 0.9 thou/uL (0.11-0.59); #Neutrophils 4.1 thou/uL (1.40-6.50); %Basophils 2.6 % (0.0-1.0); %Eosinophils 7.2 % (0.0-10.0); %Lymphocytes 13.1 % (21.0-51.0); %Monocytes 13.7 % (0.0-10.0); %Neutrophils 63.1 % (42.0-75.0); Hematocrit 36.8 % (36.0-47.0); Hemoglobin 12.5 g/dL (12.0-16.0); Mean Corpuscular Hemoglobin 32.2 pg (27.0-31.0); Mean Corpuscular Volume 94.8 fl (78.0-98.0); Red Blood Cell (RBC) Count 3.88 mill/uL (4.20-5.40); White Blood Cell (WBC) Count 6.4 10x3/uL (4.8-10.8)
[2022-11-02 04:35] LABS: Platelet Count 25 10x3/uL (130-400)
[2022-11-02] MEDS ORDERED: Dextrose 50% Abboject 50 ML SYRINGE SLOW IVP PRN (05:12)
[2022-11-02] MEDS ORDERED: Glucagon 1 MG/ML KIT IM PRN (05:12)
[2022-11-02] MEDS ORDERED: Dextrose 5% in Water 1,000 ML IV PRN (05:12)
[2022-11-02] MEDS ORDERED: Non-Formulary Item 1 EACH (Lactulose 10 Gm/15ml Oral Sol 10 GM/15 ML Ml) PO SCH (09:00)
[2022-11-02] MEDS ORDERED: Heparin 5,000 UNITS/ML VIAL SC SCH (09:00)
[2022-11-02] MEDS: Lactated Ringer's 1,000 ML IV SCH ×2 (10:08→17:14)
[2022-11-02] MEDS: Rifaximin 200 MG TAB PO SCH ×2 (10:09→21:59)
[2022-11-02] MEDS: Furosemide 40 MG TAB PO SCH (10:10)
[2022-11-02] MEDS: Spironolactone 100 MG TAB PO SCH (10:10)
[2022-11-02] MEDS: Propranolol 10 MG TAB PO SCH ×3 (10:11→21:59)
[2022-11-02] MEDS: Nicotine 14 MG PATCH TD SCH (10:12)
[2022-11-02] MEDS: Insulin Glargine 30 UNITS/0.3 ML VIAL SC SCH ×2 (10:13→22:00)
[2022-11-02 12:39] LABS: Hemoglobin A1c 9.9 % (4.0-6.0)
[2022-11-02] MEDS: Ferrous Sulfate 325 MG TAB PO SCH (17:13)
[2022-11-02] MEDS ORDERED: traMADol HCl 50 MG TAB PO SCH (23:15)
[2022-11-03] MEDS ORDERED: Melatonin 3 MG TAB PO SCH (00:30)
[2022-11-03] MEDS: Nicotine 14 MG PATCH TD SCH (02:31)
[2022-11-03] MEDS: Lactated Ringer's 1,000 ML IV SCH ×3 (02:31→21:50)
[2022-11-03 03:59] LABS: #Basophils 0.2 thou/uL (0.0-0.2); #Eosinphils 0.7 thou/uL (0.0-0.7); #Neutrophils 9.9 thou/uL (1.40-6.50); %Basophils 1.7 % (0.0-1.0); %Eosinophils 5.4 % (0.0-10.0); %Lymphocytes 7.5 % (21.0-51.0); %Monocytes 7.8 % (0.0-10.0); %Neutrophils 77.3 % (42.0-75.0); Hematocrit 39.8 % (36.0-47.0); Hemoglobin 13.5 g/dL (12.0-16.0); Mean Corpuscular HGB CONC 33.9 g/dL (32.0-36.0); Mean Corpuscular Hemoglobin 31.8 pg (27.0-31.0); Mean Corpuscular Volume 93.6 fl (78.0-98.0); RBC Distribution Width 15.1 % (11.5-14.5); Red Blood Cell (RBC) Count 4.25 mill/uL (4.20-5.40); White Blood Cell (WBC) Count 12.8 10x3/uL (4.8-10.8)
[2022-11-03 04:07] LABS: Platelet Count 27 10x3/uL (130-400)
[2022-11-03 04:21] LABS: ALT (SGPT) 20 U/L (8-55); AST (SGOT) 33 U/L (5-34); Albumin 2.7 g/dL (3.4-4.8); Alkaline Phosphatase 202 U/L (40-110); Anion Gap 13 mmol/L (10-20); BUN (Urea Nitrogen) 48 mg/dL (9.8-20.1); Bilirubin, Total 2.8 mg/dL (0.2-1.2); Calc. Creatinine Clearance 30 mL/min (70-130); Calcium 8.6 mg/dL (7.8-10.44); Carbon Dioxide 16 mmol/L (23-31); Chloride 110 mmol/L (98-107); Estimated GFR 23; Globulin 3.1 g/dL (2.4-3.5); Glucose 180 mg/dL (80-115); Magnesium 1.6 mg/dL (1.6-2.6); Protein, Total 5.8 g/dL (5.8-8.1); Sodium 135 mmol/L (136-145)
[2022-11-03] MEDS ORDERED: Magnesium 2 GM/50 ML(in water) 2 GM in Premix Bag 1 BAG IVPB SCH (04:45)
[2022-11-03] MEDS ORDERED: Non-Formulary Item 1 EACH (Pregabalin [Lyrica] 200 MG Capsule) PO SCH (09:00)
[2022-11-03] MEDS ORDERED: traMADol HCl 50 MG TAB PO SCH (09:00)
[2022-11-03] MEDS: Spironolactone 100 MG TAB PO SCH (09:08)
[2022-11-03] MEDS: Rifaximin 200 MG TAB PO SCH ×2 (09:08→21:04)
[2022-11-03] MEDS: Pregabalin 50 MG CAP PO SCH ×2 (09:10→21:03)
[2022-11-03] MEDS: Ferrous Sulfate 325 MG TAB PO SCH (09:10)
[2022-11-03] MEDS: Furosemide 40 MG TAB PO SCH (09:11)
[2022-11-03] MEDS: Propranolol 10 MG TAB PO SCH (09:11)
[2022-11-03] MEDS: Insulin Glargine 30 UNITS/0.3 ML VIAL SC SCH ×2 (09:14→21:04)
[2022-11-03 10:38] LABS: Magnesium 2.1 mg/dL (1.6-2.6)
[2022-11-03] MEDS: traMADol HCl 50 MG TAB PO PRN ×2 (15:53→21:04)
[2022-11-03] MEDS ORDERED: Propranolol 10 MG TAB PO SCH (21:00)
[2022-11-04] MEDS: Nicotine 14 MG PATCH TD SCH (04:13)
[2022-11-04] MEDS: traMADol HCl 50 MG TAB PO PRN ×2 (04:20→13:01)
[2022-11-04 05:02] LABS: #Basophils 0.2 thou/uL (0.0-0.2); #Eosinphils 0.8 thou/uL (0.0-0.7); #Monocytes 1.2 thou/uL (0.11-0.59); #Neutrophils 8.1 thou/uL (1.40-6.50); %Basophils 1.5 % (0.0-1.0); %Eosinophils 6.7 % (0.0-10.0); %Lymphocytes 10.8 % (21.0-51.0); %Monocytes 10.4 % (0.0-10.0); %Neutrophils 70.3 % (42.0-75.0); Hematocrit 37.3 % (36.0-47.0); Mean Corpuscular HGB CONC 34.9 g/dL (32.0-36.0); Mean Corpuscular Volume 91.9 fl (78.0-98.0); RBC Distribution Width 15.1 % (11.5-14.5); Red Blood Cell (RBC) Count 4.06 mill/uL (4.20-5.40); White Blood Cell (WBC) Count 11.5 10x3/uL (4.8-10.8)
[2022-11-04 05:06] LABS: Platelet Count 38 10x3/uL (130-400)
[2022-11-04 05:23] LABS: ALT (SGPT) 20 U/L (8-55); AST (SGOT) 33 U/L (5-34); Albumin 2.7 g/dL (3.4-4.8); Alkaline Phosphatase 185 U/L (40-110); Anion Gap 13 mmol/L (10-20); BUN (Urea Nitrogen) 48 mg/dL (9.8-20.1); Calc. Creatinine Clearance 27 mL/min (70-130); Calcium 8.7 mg/dL (7.8-10.44); Carbon Dioxide 16 mmol/L (23-31); Chloride 111 mmol/L (98-107); Estimated GFR 20; Globulin 3.2 g/dL (2.4-3.5); Glucose 87 mg/dL (80-115); Protein, Total 5.9 g/dL (5.8-8.1); Sodium 136 mmol/L (136-145)
[2022-11-04] MEDS: Rifaximin 200 MG TAB PO SCH ×2 (08:47→21:29)
[2022-11-04] MEDS: Pregabalin 50 MG CAP PO SCH ×2 (08:48→21:37)
[2022-11-04] MEDS: Spironolactone 100 MG TAB PO SCH (08:48)
[2022-11-04] MEDS: Furosemide 40 MG TAB PO SCH (08:48)
[2022-11-04] MEDS: Metoprolol Tartrate 25 MG TAB PO SCH ×2 (10:05→21:28)
[2022-11-04] MEDS: Lactated Ringer's 1,000 ML IV SCH (10:37)
[2022-11-04] MEDS: Insulin Glargine 30 UNITS/0.3 ML VIAL SC SCH ×2 (11:26→21:29)
[2022-11-04] MEDS: Propranolol 10 MG TAB PO SCH ×2 (13:00→21:30)
[2022-11-04] MEDS: HumaLOG 300 UNITS/3 ML VIAL SC PRN ×2 (17:16→21:32)
[2022-11-05 04:53] LABS: #Basophils 0.2 thou/uL (0.0-0.2); #Eosinphils 0.8 thou/uL (0.0-0.7); #Monocytes 1.9 thou/uL (0.11-0.59); #Neutrophils 9.1 thou/uL (1.40-6.50); %Basophils 1.5 % (0.0-1.0); %Eosinophils 5.9 % (0.0-10.0); %Lymphocytes 8.7 % (21.0-51.0); %Monocytes 14.2 % (0.0-10.0); %Neutrophils 69.3 % (42.0-75.0); Hematocrit 39.4 % (36.0-47.0); Hemoglobin 12.9 g/dL (12.0-16.0); Mean Corpuscular HGB CONC 32.7 g/dL (32.0-36.0); Mean Corpuscular Hemoglobin 32.1 pg (27.0-31.0); Platelet Count 36 10x3/uL (130-400); RBC Distribution Width 15.6 % (11.5-14.5); Red Blood Cell (RBC) Count 4.02 mill/uL (4.20-5.40); White Blood Cell (WBC) Count 13.2 10x3/uL (4.8-10.8)
[2022-11-05 05:18] LABS: ALT (SGPT) 19 U/L (8-55); AST (SGOT) 36 U/L (5-34); Albumin 2.5 g/dL (3.4-4.8); Alkaline Phosphatase 192 U/L (40-110); Anion Gap 14 mmol/L (10-20); BUN (Urea Nitrogen) 56 mg/dL (9.8-20.1); Bilirubin, Total 2.1 mg/dL (0.2-1.2); Calc. Creatinine Clearance 25 mL/min (70-130); Calcium 8.3 mg/dL (7.8-10.44); Carbon Dioxide 14 mmol/L (23-31); Chloride 110 mmol/L (98-107); Estimated GFR 18; Globulin 3.2 g/dL (2.4-3.5); Glucose 177 mg/dL (80-115); Potassium 4.6 mmol/L (3.5-5.1); Protein, Total 5.7 g/dL (5.8-8.1); Sodium 133 mmol/L (136-145)
[2022-11-05] MEDS: HumaLOG 300 UNITS/3 ML VIAL SC PRN ×3 (05:24→21:13)
[2022-11-05] MEDS: traMADol HCl 50 MG TAB PO PRN (05:24)
[2022-11-05] MEDS: Propranolol 10 MG TAB PO SCH ×2 (05:24→21:08)
[2022-11-05] MEDS: Nicotine 14 MG PATCH TD SCH (05:28)
[2022-11-05] MEDS: Metoprolol Tartrate 25 MG TAB PO SCH ×2 (08:24→21:08)
[2022-11-05] MEDS: Pregabalin 50 MG CAP PO SCH ×2 (08:52→21:07)
[2022-11-05] MEDS: Rifaximin 200 MG TAB PO SCH ×2 (11:22→21:11)
[2022-11-05] MEDS: Furosemide 40 MG TAB PO SCH (11:22)
[2022-11-05] MEDS: Insulin Glargine 30 UNITS/0.3 ML VIAL SC SCH ×2 (11:23→21:12)
[2022-11-05] MEDS: Spironolactone 100 MG TAB PO SCH (11:23)
[2022-11-05] MEDS ORDERED: Lidocaine 1% PF 5 ML VIAL ONE (12:03)
[2022-11-05] MEDS ORDERED: Sodium Bicarbonate 2.5 MEQ/5 ML VIAL ONE (12:03)
[2022-11-05] MEDS: Albumin 25% 25 GM/100 ML BOT IVPB SCH ×2 (13:57→19:21)
[2022-11-06] MEDS: Albumin 25% 25 GM/100 ML BOT IVPB SCH ×3 (01:12→18:11)
[2022-11-06 05:21] LABS: #Basophils 0.1 thou/uL (0.0-0.2); #Eosinphils 0.8 thou/uL (0.0-0.7); #Monocytes 1.5 thou/uL (0.11-0.59); %Basophils 1.2 % (0.0-1.0); %Eosinophils 7.7 % (0.0-10.0); %Lymphocytes 10.3 % (21.0-51.0); %Neutrophils 66.5 % (42.0-75.0); Hematocrit 32.8 % (36.0-47.0); Hemoglobin 11.2 g/dL (12.0-16.0); Mean Corpuscular HGB CONC 34.1 g/dL (32.0-36.0); Mean Corpuscular Hemoglobin 31.8 pg (27.0-31.0); Mean Corpuscular Volume 93.2 fl (78.0-98.0); RBC Distribution Width 15.1 % (11.5-14.5); Red Blood Cell (RBC) Count 3.52 mill/uL (4.20-5.40); White Blood Cell (WBC) Count 10.4 10x3/uL (4.8-10.8)
[2022-11-06 05:24] LABS: Platelet Count 25 10x3/uL (130-400)
[2022-11-06] MEDS: Nicotine 14 MG PATCH TD SCH (05:45)
[2022-11-06 05:47] LABS: ALT (SGPT) 16 U/L (8-55); AST (SGOT) 32 U/L (5-34); Albumin 3.2 g/dL (3.4-4.8); Alkaline Phosphatase 182 U/L (40-110); Anion Gap 14 mmol/L (10-20); BUN (Urea Nitrogen) 58 mg/dL (9.8-20.1); Bilirubin, Total 1.9 mg/dL (0.2-1.2); Calc. Creatinine Clearance 23 mL/min (70-130); Calcium 8.4 mg/dL (7.8-10.44); Carbon Dioxide 16 mmol/L (23-31); Chloride 108 mmol/L (98-107); Estimated GFR 17; Globulin 2.6 g/dL (2.4-3.5); Glucose 222 mg/dL (80-115); Potassium 4.2 mmol/L (3.5-5.1); Protein, Total 5.8 g/dL (5.8-8.1); Sodium 134 mmol/L (136-145)
[2022-11-06] MEDS: HumaLOG 300 UNITS/3 ML VIAL SC PRN ×4 (06:34→21:20)
[2022-11-06] MEDS: Rifaximin 200 MG TAB PO SCH ×2 (08:55→21:20)
[2022-11-06] MEDS: Pregabalin 50 MG CAP PO SCH ×2 (08:56→21:19)
[2022-11-06] MEDS: Metoprolol Tartrate 25 MG TAB PO SCH ×2 (08:57→21:21)
[2022-11-06] MEDS: traMADol HCl 50 MG TAB PO SCH (08:58)
[2022-11-06] MEDS: Furosemide 40 MG TAB PO SCH (08:58)
[2022-11-06] MEDS: Propranolol 10 MG TAB PO SCH ×2 (08:59→21:21)
[2022-11-06] MEDS: Ferrous Sulfate 325 MG TAB PO SCH (08:59)
[2022-11-06] MEDS: Spironolactone 100 MG TAB PO SCH (08:59)
[2022-11-06] MEDS: Insulin Glargine 30 UNITS/0.3 ML VIAL SC SCH ×2 (09:01→21:20)
[2022-11-06] MEDS ORDERED: Dextrose 50% Abboject 50 ML SYRINGE SLOW IVP PRN (16:32)
[2022-11-06] MEDS ORDERED: Dextrose 5% in Water 1,000 ML IV PRN (16:32)
[2022-11-06] MEDS ORDERED: Glucagon 1 MG/ML KIT IM PRN (16:32)
[2022-11-06] MEDS: Midodrine HCl 5 MG TAB PO SCH ×2 (16:46→21:21)
[2022-11-07] MEDS: Albumin 25% 25 GM/100 ML BOT IVPB SCH ×4 (00:03→18:21)
[2022-11-07] MEDS: Nicotine 14 MG PATCH TD SCH (03:44)
[2022-11-07] MEDS ORDERED: traMADol HCl 50 MG TAB PO SCH (03:45)
[2022-11-07] MEDS: HumaLOG 300 UNITS/3 ML VIAL SC PRN ×4 (05:19→21:20)
[2022-11-07 05:57] LABS: #Basophils 0.1 thou/uL (0.0-0.2); #Monocytes 1.1 thou/uL (0.11-0.59); #Neutrophils 5.7 thou/uL (1.40-6.50); %Basophils 1.3 % (0.0-1.0); %Eosinophils 10.8 % (0.0-10.0); %Monocytes 12.3 % (0.0-10.0); %Neutrophils 63.3 % (42.0-75.0); Hematocrit 30.9 % (36.0-47.0); Hemoglobin 10.7 g/dL (12.0-16.0); Mean Corpuscular HGB CONC 34.6 g/dL (32.0-36.0); Mean Corpuscular Hemoglobin 31.7 pg (27.0-31.0); Mean Corpuscular Volume 91.4 fl (78.0-98.0); Red Blood Cell (RBC) Count 3.38 mill/uL (4.20-5.40)
[2022-11-07 06:01] LABS: Platelet Count 25 10x3/uL (130-400)
[2022-11-07 06:26] LABS: ALT (SGPT) 19 U/L (8-55); AST (SGOT) 38 U/L (5-34); Albumin 3.7 g/dL (3.4-4.8); Alkaline Phosphatase 219 U/L (40-110); Anion Gap 15 mmol/L (10-20); BUN (Urea Nitrogen) 63 mg/dL (9.8-20.1); Bilirubin, Total 1.2 mg/dL (0.2-1.2); Calc. Creatinine Clearance 24 mL/min (70-130); Calcium 8.4 mg/dL (7.8-10.44); Carbon Dioxide 15 mmol/L (23-31); Chloride 108 mmol/L (98-107); Estimated GFR 18; Globulin 1.9 g/dL (2.4-3.5); Glucose 197 mg/dL (80-115); Potassium 4.5 mmol/L (3.5-5.1); Protein, Total 5.6 g/dL (5.8-8.1); Sodium 133 mmol/L (136-145)
[2022-11-07] MEDS: Pregabalin 50 MG CAP PO SCH ×2 (09:30→21:18)
[2022-11-07] MEDS: Insulin Glargine 30 UNITS/0.3 ML VIAL SC SCH ×2 (09:30→21:19)
[2022-11-07] MEDS: Rifaximin 200 MG TAB PO SCH ×2 (09:30→21:18)
[2022-11-07] MEDS: Midodrine HCl 5 MG TAB PO SCH ×3 (09:31→21:19)
[2022-11-07] MEDS: traMADol HCl 50 MG TAB PO SCH (09:31)
[2022-11-07] MEDS: Metoprolol Tartrate 25 MG TAB PO SCH ×2 (09:32→21:19)
[2022-11-07] MEDS: Ferrous Sulfate 325 MG TAB PO SCH (09:32)
[2022-11-07] MEDS: Propranolol 10 MG TAB PO SCH ×2 (09:32→21:19)
[2022-11-07] MEDS: Pantoprazole 40 MG VIAL IVP SCH (09:40)
[2022-11-07] MEDS ORDERED: cefTRIAXone\\ROCEPHIN 1 GM in Sodium Chloride 0.9% 100 ML IVPB SCH (10:00)
[2022-11-07] MEDS: Sodium Bicarbonate Tab 325 MG TAB PO SCH ×2 (16:23→21:18)
[2022-11-08] MEDS: Albumin 25% 25 GM/100 ML BOT IVPB SCH ×3 (00:25→12:14)
[2022-11-08] MEDS: Nicotine 14 MG PATCH TD SCH (04:32)
[2022-11-08 07:37] LABS: #Basophils 0.1 thou/uL (0.0-0.2); #Eosinphils 1.1 thou/uL (0.0-0.7); #Monocytes 0.9 thou/uL (0.11-0.59); #Neutrophils 4.1 thou/uL (1.40-6.50); %Basophils 1.8 % (0.0-1.0); %Eosinophils 15.5 % (0.0-10.0); %Lymphocytes 12.3 % (21.0-51.0); %Monocytes 12.1 % (0.0-10.0); %Neutrophils 57.7 % (42.0-75.0); Hematocrit 30.7 % (36.0-47.0); Hemoglobin 10.4 g/dL (12.0-16.0); Mean Corpuscular HGB CONC 33.9 g/dL (32.0-36.0); Mean Corpuscular Hemoglobin 31.7 pg (27.0-31.0); Mean Corpuscular Volume 93.6 fl (78.0-98.0); Red Blood Cell (RBC) Count 3.28 mill/uL (4.20-5.40); White Blood Cell (WBC) Count 7.2 10x3/uL (4.8-10.8)
[2022-11-08 07:53] LABS: Platelet Count 24 10x3/uL (130-400)
[2022-11-08 07:59] LABS: ALT (SGPT) 17 U/L (8-55); AST (SGOT) 32 U/L (5-34); Albumin 4.1 g/dL (3.4-4.8); Alkaline Phosphatase 168 U/L (40-110); Anion Gap 12 mmol/L (10-20); BUN (Urea Nitrogen) 62 mg/dL (9.8-20.1); Bilirubin, Total 1.3 mg/dL (0.2-1.2); Calc. Creatinine Clearance 26 mL/min (70-130); Calcium 8.9 mg/dL (7.8-10.44); Carbon Dioxide 14 mmol/L (23-31); Chloride 109 mmol/L (98-107); Estimated GFR 19; Globulin 1.8 g/dL (2.4-3.5); Glucose 134 mg/dL (80-115); Potassium 4.8 mmol/L (3.5-5.1); Protein, Total 5.9 g/dL (5.8-8.1); Sodium 130 mmol/L (136-145)
[2022-11-08] MEDS: Metoprolol Tartrate 25 MG TAB PO SCH ×2 (09:09→21:14)
[2022-11-08] MEDS: traMADol HCl 50 MG TAB PO SCH (09:11)
[2022-11-08] MEDS: Midodrine HCl 5 MG TAB PO SCH ×3 (09:11→21:17)
[2022-11-08] MEDS: Propranolol 10 MG TAB PO SCH ×2 (09:11→21:14)
[2022-11-08] MEDS: Rifaximin 200 MG TAB PO SCH ×2 (09:11→21:16)
[2022-11-08] MEDS: Insulin Glargine 30 UNITS/0.3 ML VIAL SC SCH ×2 (09:12→21:12)
[2022-11-08] MEDS: Pantoprazole 40 MG VIAL IVP SCH (09:13)
[2022-11-08] MEDS: Sodium Bicarbonate Tab 325 MG TAB PO SCH ×3 (09:23→21:16)
[2022-11-08] MEDS: Pregabalin 50 MG CAP PO SCH ×2 (09:50→21:13)
[2022-11-08] MEDS ORDERED: Cefdinir 300 MG CAP PO SCH (10:00)
[2022-11-08] MEDS ORDERED: Venlafaxine HCl 37.5 MG TAB PO SCH (12:45)
[2022-11-09] MEDS: Nicotine 14 MG PATCH TD SCH (04:19)
[2022-11-09 05:25] LABS: #Basophils 0.1 thou/uL (0.0-0.2); #Eosinphils 1.1 thou/uL (0.0-0.7); #Neutrophils 4.5 thou/uL (1.40-6.50); %Basophils 1.8 % (0.0-1.0); %Eosinophils 14.4 % (0.0-10.0); %Lymphocytes 11.5 % (21.0-51.0); %Monocytes 13.1 % (0.0-10.0); %Neutrophils 58.4 % (42.0-75.0); Hematocrit 31.5 % (36.0-47.0); Hemoglobin 10.5 g/dL (12.0-16.0); Mean Corpuscular HGB CONC 33.3 g/dL (32.0-36.0); Mean Corpuscular Hemoglobin 32.1 pg (27.0-31.0); Mean Corpuscular Volume 96.3 fl (78.0-98.0); RBC Distribution Width 15.5 % (11.5-14.5); Red Blood Cell (RBC) Count 3.27 mill/uL (4.20-5.40); White Blood Cell (WBC) Count 7.7 10x3/uL (4.8-10.8)
[2022-11-09 05:36] LABS: Platelet Count 31 10x3/uL (130-400)
[2022-11-09 05:55] LABS: ALT (SGPT) 19 U/L (8-55); AST (SGOT) 39 U/L (5-34); Albumin 3.7 g/dL (3.4-4.8); Alkaline Phosphatase 210 U/L (40-110); Anion Gap 13 mmol/L (10-20); BUN (Urea Nitrogen) 66 mg/dL (9.8-20.1); Bilirubin, Total 1.2 mg/dL (0.2-1.2); Calc. Creatinine Clearance 27 mL/min (70-130); Calcium 8.7 mg/dL (7.8-10.44); Carbon Dioxide 16 mmol/L (23-31); Chloride 107 mmol/L (98-107); Estimated GFR 20; Glucose 155 mg/dL (80-115); Potassium 4.6 mmol/L (3.5-5.1); Protein, Total 5.7 g/dL (5.8-8.1); Sodium 131 mmol/L (136-145)
[2022-11-09] MEDS: Pregabalin 50 MG CAP PO SCH ×2 (08:52→22:26)
[2022-11-09] MEDS: Cefdinir 300 MG CAP PO SCH (08:52)
[2022-11-09] MEDS: Midodrine HCl 5 MG TAB PO SCH ×3 (08:52→22:28)
[2022-11-09] MEDS: traMADol HCl 50 MG TAB PO SCH (08:52)
[2022-11-09] MEDS: Rifaximin 200 MG TAB PO SCH ×2 (08:53→22:26)
[2022-11-09] MEDS: Sodium Bicarbonate Tab 325 MG TAB PO SCH ×3 (08:53→22:29)
[2022-11-09] MEDS: Metoprolol Tartrate 25 MG TAB PO SCH ×2 (08:53→22:27)
[2022-11-09] MEDS: Pantoprazole 40 MG VIAL IVP SCH (08:54)
[2022-11-09] MEDS: Insulin Glargine 30 UNITS/0.3 ML VIAL SC SCH ×2 (08:54→22:25)
[2022-11-09] MEDS: Propranolol 10 MG TAB PO SCH ×2 (08:54→22:28)
[2022-11-09] MEDS: Venlafaxine XR 37.5 MG CAP PO SCH (08:54)
[2022-11-09] MEDS: HumaLOG 300 UNITS/3 ML VIAL SC PRN ×2 (11:10→17:41)
[2022-11-10 06:10] LABS: #Basophils 0.1 thou/uL (0.0-0.2); #Monocytes 0.9 thou/uL (0.11-0.59); #Neutrophils 4.1 thou/uL (1.40-6.50); %Basophils 1.7 % (0.0-1.0); %Eosinophils 13.7 % (0.0-10.0); %Lymphocytes 11.4 % (21.0-51.0); %Monocytes 13.3 % (0.0-10.0); %Neutrophils 59.2 % (42.0-75.0); Hematocrit 29.3 % (36.0-47.0); Hemoglobin 10.3 g/dL (12.0-16.0); Mean Corpuscular HGB CONC 35.2 g/dL (32.0-36.0); Mean Corpuscular Hemoglobin 32.3 pg (27.0-31.0); Mean Corpuscular Volume 91.8 fl (78.0-98.0); RBC Distribution Width 15.3 % (11.5-14.5); Red Blood Cell (RBC) Count 3.19 mill/uL (4.20-5.40); White Blood Cell (WBC) Count 6.9 10x3/uL (4.8-10.8)
[2022-11-10 06:15] LABS: Platelet Count 25 10x3/uL (130-400)
[2022-11-10] MEDS: HumaLOG 300 UNITS/3 ML VIAL SC PRN ×2 (06:32→13:31)
[2022-11-10] MEDS: Nicotine 14 MG PATCH TD SCH (06:33)
[2022-11-10 06:40] LABS: ALT (SGPT) 21 U/L (8-55); AST (SGOT) 39 U/L (5-34); Albumin 3.4 g/dL (3.4-4.8); Alkaline Phosphatase 263 U/L (40-110); Anion Gap 15 mmol/L (10-20); BUN (Urea Nitrogen) 66 mg/dL (9.8-20.1); Bilirubin, Total 1.3 mg/dL (0.2-1.2); Calc. Creatinine Clearance 28 mL/min (70-130); Calcium 8.5 mg/dL (7.8-10.44); Carbon Dioxide 16 mmol/L (23-31); Chloride 109 mmol/L (98-107); Estimated GFR 21; Globulin 2.2 g/dL (2.4-3.5); Glucose 254 mg/dL (80-115); Potassium 4.5 mmol/L (3.5-5.1); Protein, Total 5.6 g/dL (5.8-8.1); Sodium 135 mmol/L (136-145)
[2022-11-10] MEDS: Cefdinir 300 MG CAP PO SCH (08:59)
[2022-11-10] MEDS: Pregabalin 50 MG CAP PO SCH ×2 (08:59→21:59)
[2022-11-10] MEDS: Sodium Bicarbonate Tab 325 MG TAB PO SCH ×3 (09:00→21:59)
[2022-11-10] MEDS: Rifaximin 200 MG TAB PO SCH ×2 (09:00→21:59)
[2022-11-10] MEDS: Midodrine HCl 5 MG TAB PO SCH ×3 (09:00→22:00)
[2022-11-10] MEDS: Propranolol 10 MG TAB PO SCH ×2 (09:01→22:00)
[2022-11-10] MEDS: Ferrous Sulfate 325 MG TAB PO SCH (09:01)
[2022-11-10] MEDS: traMADol HCl 50 MG TAB PO SCH (09:01)
[2022-11-10] MEDS: Venlafaxine XR 37.5 MG CAP PO SCH (09:01)
[2022-11-10] MEDS: Insulin Glargine 30 UNITS/0.3 ML VIAL SC SCH ×2 (09:02→22:00)
[2022-11-10] MEDS: Metoprolol Tartrate 25 MG TAB PO SCH ×2 (11:09→22:00)
[2022-11-10] MEDS: Pantoprazole 40 MG VIAL IVP SCH (11:15)
[2022-11-11] MEDS: Nicotine 14 MG PATCH TD SCH (03:43)
[2022-11-11 04:53] LABS: #Basophils 0.2 thou/uL (0.0-0.2); #Neutrophils 3.8 thou/uL (1.40-6.50); %Basophils 2.2 % (0.0-1.0); %Eosinophils 14.1 % (0.0-10.0); %Lymphocytes 11.4 % (21.0-51.0); %Monocytes 14.8 % (0.0-10.0); %Neutrophils 56.8 % (42.0-75.0); Hematocrit 29.6 % (36.0-47.0); Hemoglobin 10.1 g/dL (12.0-16.0); Mean Corpuscular HGB CONC 34.1 g/dL (32.0-36.0); Mean Corpuscular Hemoglobin 32.3 pg (27.0-31.0); RBC Distribution Width 15.7 % (11.5-14.5); Red Blood Cell (RBC) Count 3.13 mill/uL (4.20-5.40); White Blood Cell (WBC) Count 6.8 10x3/uL (4.8-10.8)
[2022-11-11 04:56] LABS: Platelet Count 26 10x3/uL (130-400)
[2022-11-11 04:57] LABS: Mean Corpuscular Volume 94.6 fl (78.0-98.0)
[2022-11-11 05:17] LABS: ALT (SGPT) 24 U/L (8-55); AST (SGOT) 45 U/L (5-34); Albumin 3.3 g/dL (3.4-4.8); Alkaline Phosphatase 238 U/L (40-110); Anion Gap 13 mmol/L (10-20); BUN (Urea Nitrogen) 65 mg/dL (9.8-20.1); Bilirubin, Total 1.6 mg/dL (0.2-1.2); Calc. Creatinine Clearance 26 mL/min (70-130); Calcium 8.6 mg/dL (7.8-10.44); Carbon Dioxide 19 mmol/L (23-31); Chloride 110 mmol/L (98-107); Estimated GFR 19; Globulin 2.2 g/dL (2.4-3.5); Glucose 259 mg/dL (80-115); Potassium 4.6 mmol/L (3.5-5.1); Protein, Total 5.5 g/dL (5.8-8.1); Sodium 137 mmol/L (136-145)
[2022-11-11] MEDS: HumaLOG 300 UNITS/3 ML VIAL SC PRN (06:11)
[2022-11-11] MEDS: Insulin Glargine 30 UNITS/0.3 ML VIAL SC SCH ×2 (10:13→21:27)
[2022-11-11] MEDS: Sodium Bicarbonate Tab 325 MG TAB PO SCH ×3 (10:14→21:26)
[2022-11-11] MEDS: Venlafaxine XR 37.5 MG CAP PO SCH (10:14)
[2022-11-11] MEDS: Midodrine HCl 5 MG TAB PO SCH ×3 (10:16→21:26)
[2022-11-11] MEDS: Rifaximin 200 MG TAB PO SCH ×2 (10:16→21:25)
[2022-11-11] MEDS: Propranolol 10 MG TAB PO SCH ×2 (10:17→21:26)
[2022-11-11] MEDS: Metoprolol Tartrate 25 MG TAB PO SCH ×2 (10:17→21:27)
[2022-11-11] MEDS: Cefdinir 300 MG CAP PO SCH (10:17)
[2022-11-11] MEDS: traMADol HCl 50 MG TAB PO SCH (10:17)
[2022-11-11] MEDS: Pregabalin 50 MG CAP PO SCH ×2 (10:39→21:26)
[2022-11-11] MEDS ORDERED: Lidocaine 1% PF 5 ML VIAL ONE (12:00)
[2022-11-11] MEDS ORDERED: Sodium Bicarbonate 2.5 MEQ/5 ML VIAL ONE (12:00)
[2022-11-11] MEDS ORDERED: Lactulose 10 GM/15 ML Oral Solution PR SCH (21:15)
[2022-11-12] MEDS: Nicotine 14 MG PATCH TD SCH (03:52)
[2022-11-12 05:11] LABS: #Basophils 0.1 thou/uL (0.0-0.2); #Eosinphils 0.7 thou/uL (0.0-0.7); #Monocytes 0.9 thou/uL (0.11-0.59); #Neutrophils 5.3 thou/uL (1.40-6.50); %Basophils 1.3 % (0.0-1.0); %Eosinophils 8.5 % (0.0-10.0); %Lymphocytes 10.9 % (21.0-51.0); %Monocytes 11.3 % (0.0-10.0); %Neutrophils 67.6 % (42.0-75.0); Hematocrit 31.3 % (36.0-47.0); Hemoglobin 10.4 g/dL (12.0-16.0); Mean Corpuscular HGB CONC 33.2 g/dL (32.0-36.0); Mean Corpuscular Hemoglobin 31.6 pg (27.0-31.0); Mean Corpuscular Volume 95.1 fl (78.0-98.0); RBC Distribution Width 15.8 % (11.5-14.5); Red Blood Cell (RBC) Count 3.29 mill/uL (4.20-5.40); White Blood Cell (WBC) Count 7.8 10x3/uL (4.8-10.8)
[2022-11-12 05:25] LABS: ALT (SGPT) 26 U/L (8-55); AST (SGOT) 46 U/L (5-34); Albumin 3.5 g/dL (3.4-4.8); Alkaline Phosphatase 223 U/L (40-110); Anion Gap 16 mmol/L (10-20); BUN (Urea Nitrogen) 67 mg/dL (9.8-20.1); Bilirubin, Total 1.8 mg/dL (0.2-1.2); Calc. Creatinine Clearance 30 mL/min (70-130); Calcium 9.2 mg/dL (7.8-10.44); Carbon Dioxide 16 mmol/L (23-31); Chloride 110 mmol/L (98-107); Estimated GFR 22; Globulin 2.4 g/dL (2.4-3.5); Glucose 220 mg/dL (80-115); Potassium 4.3 mmol/L (3.5-5.1); Protein, Total 5.9 g/dL (5.8-8.1); Sodium 138 mmol/L (136-145)
[2022-11-12 05:26] LABS: Platelet Count 34 10x3/uL (130-400)
[2022-11-12] MEDS: Ferrous Sulfate 325 MG TAB PO SCH (08:23)
[2022-11-12] MEDS: Pregabalin 50 MG CAP PO SCH ×2 (08:23→22:02)
[2022-11-12] MEDS: Rifaximin 200 MG TAB PO SCH ×2 (08:24→22:01)
[2022-11-12] MEDS: traMADol HCl 50 MG TAB PO SCH (08:24)
[2022-11-12] MEDS: Venlafaxine XR 37.5 MG CAP PO SCH (08:24)
[2022-11-12] MEDS: Propranolol 10 MG TAB PO SCH ×2 (08:25→22:04)
[2022-11-12] MEDS: Metoprolol Tartrate 25 MG TAB PO SCH ×2 (08:25→22:04)
[2022-11-12] MEDS: Midodrine HCl 5 MG TAB PO SCH ×3 (08:25→22:04)
[2022-11-12] MEDS: Sodium Bicarbonate Tab 325 MG TAB PO SCH ×3 (08:25→22:03)
[2022-11-12] MEDS: Insulin Glargine 30 UNITS/0.3 ML VIAL SC SCH ×2 (08:26→22:06)
[2022-11-12] MEDS ORDERED: Lidocaine 1% PF 5 ML VIAL ONE (11:40)
[2022-11-12] MEDS ORDERED: Sodium Bicarbonate 2.5 MEQ/5 ML VIAL ONE (11:40)
[2022-11-13 04:36] LABS: #Basophils 0.2 thou/uL (0.0-0.2); #Eosinphils 1.2 thou/uL (0.0-0.7); #Monocytes 1.1 thou/uL (0.11-0.59); #Neutrophils 5.3 thou/uL (1.40-6.50); %Eosinophils 13.8 % (0.0-10.0); %Monocytes 12.3 % (0.0-10.0); %Neutrophils 60.6 % (42.0-75.0); Hematocrit 35.9 % (36.0-47.0); Hemoglobin 12.2 g/dL (12.0-16.0); Mean Corpuscular Hemoglobin 32.3 pg (27.0-31.0); RBC Distribution Width 15.9 % (11.5-14.5); Red Blood Cell (RBC) Count 3.78 mill/uL (4.20-5.40); White Blood Cell (WBC) Count 8.7 10x3/uL (4.8-10.8)
[2022-11-13 04:43] LABS: Platelet Count 31 10x3/uL (130-400)
[2022-11-13 05:00] LABS: ALT (SGPT) 29 U/L (8-55); AST (SGOT) 53 U/L (5-34); Albumin 3.6 g/dL (3.4-4.8); Alkaline Phosphatase 242 U/L (40-110); Anion Gap 15 mmol/L (10-20); BUN (Urea Nitrogen) 52 mg/dL (9.8-20.1); Bilirubin, Total 2.3 mg/dL (0.2-1.2); Calc. Creatinine Clearance 33 mL/min (70-130); Calcium 9.6 mg/dL (7.8-10.44); Carbon Dioxide 18 mmol/L (23-31); Chloride 112 mmol/L (98-107); Estimated GFR 25; Globulin 2.7 g/dL (2.4-3.5); Glucose 114 mg/dL (80-115); Potassium 3.7 mmol/L (3.5-5.1); Protein, Total 6.3 g/dL (5.8-8.1); Sodium 141 mmol/L (136-145)
[2022-11-13] MEDS: Nicotine 14 MG PATCH TD SCH (05:12)
[2022-11-13] MEDS: Insulin Glargine 30 UNITS/0.3 ML VIAL SC SCH ×2 (07:12→21:54)
[2022-11-13] MEDS: Rifaximin 200 MG TAB PO SCH (10:09)
[2022-11-13] MEDS: Pregabalin 50 MG CAP PO SCH ×2 (10:10→21:52)
[2022-11-13] MEDS: Sodium Bicarbonate Tab 325 MG TAB PO SCH ×2 (10:10→17:33)
[2022-11-13] MEDS: Metoprolol Tartrate 25 MG TAB PO SCH ×2 (10:11→21:53)
[2022-11-13] MEDS: Midodrine HCl 5 MG TAB PO SCH ×3 (10:11→21:53)
[2022-11-13] MEDS: traMADol HCl 50 MG TAB PO SCH (10:12)
[2022-11-13] MEDS: Venlafaxine XR 37.5 MG CAP PO SCH (10:12)
[2022-11-13] MEDS: Propranolol 10 MG TAB PO SCH ×2 (10:14→21:52)
[2022-11-14] MEDS: Sodium Bicarbonate Tab 325 MG TAB PO SCH ×4 (00:07→23:02)
[2022-11-14] MEDS: Rifaximin 200 MG TAB PO SCH ×3 (00:08→23:02)
[2022-11-14] MEDS: Nicotine 14 MG PATCH TD SCH (03:54)
[2022-11-14 05:27] LABS: #Basophils 0.1 thou/uL (0.0-0.2); #Eosinphils 1.1 thou/uL (0.0-0.7); #Monocytes 1.1 thou/uL (0.11-0.59); #Neutrophils 4.9 thou/uL (1.40-6.50); %Basophils 1.7 % (0.0-1.0); %Eosinophils 12.7 % (0.0-10.0); %Lymphocytes 11.9 % (21.0-51.0); %Monocytes 13.8 % (0.0-10.0); %Neutrophils 59.3 % (42.0-75.0); Hematocrit 30.7 % (36.0-47.0); Hemoglobin 10.4 g/dL (12.0-16.0); Mean Corpuscular HGB CONC 33.9 g/dL (32.0-36.0); Mean Corpuscular Hemoglobin 31.8 pg (27.0-31.0); Mean Corpuscular Volume 93.9 fl (78.0-98.0); RBC Distribution Width 15.8 % (11.5-14.5); Red Blood Cell (RBC) Count 3.27 mill/uL (4.20-5.40); White Blood Cell (WBC) Count 8.3 10x3/uL (4.8-10.8)
[2022-11-14 05:48] LABS: Platelet Count 31 10x3/uL (130-400)
[2022-11-14 05:54] LABS: ALT (SGPT) 30 U/L (8-55); AST (SGOT) 57 U/L (5-34); Albumin 3.2 g/dL (3.4-4.8); Alkaline Phosphatase 256 U/L (40-110); Anion Gap 15 mmol/L (10-20); BUN (Urea Nitrogen) 55 mg/dL (9.8-20.1); Bilirubin, Total 1.9 mg/dL (0.2-1.2); Calc. Creatinine Clearance 28 mL/min (70-130); Calcium 8.8 mg/dL (7.8-10.44); Carbon Dioxide 19 mmol/L (23-31); Chloride 110 mmol/L (98-107); Estimated GFR 21; Globulin 2.5 g/dL (2.4-3.5); Glucose 211 mg/dL (80-115); Potassium 3.8 mmol/L (3.5-5.1); Protein, Total 5.7 g/dL (5.8-8.1); Sodium 140 mmol/L (136-145)
[2022-11-14] MEDS: Pregabalin 50 MG CAP PO SCH ×2 (07:52→23:03)
[2022-11-14] MEDS: Metoprolol Tartrate 25 MG TAB PO SCH ×2 (07:53→23:04)
[2022-11-14] MEDS: Midodrine HCl 5 MG TAB PO SCH ×3 (07:53→23:04)
[2022-11-14] MEDS: Venlafaxine XR 37.5 MG CAP PO SCH (07:53)
[2022-11-14] MEDS: Propranolol 10 MG TAB PO SCH ×2 (07:53→23:04)
[2022-11-14] MEDS: Insulin Glargine 30 UNITS/0.3 ML VIAL SC SCH ×2 (07:54→23:06)
[2022-11-14] MEDS: Ferrous Sulfate 325 MG TAB PO SCH (08:00)
[2022-11-14] MEDS: traMADol HCl 50 MG TAB PO SCH (10:45)
[2022-11-14] MEDS: HumaLOG 300 UNITS/3 ML VIAL SC PRN (12:06)
[2022-11-15 05:13] LABS: #Basophils 0.2 thou/uL (0.0-0.2); #Eosinphils 1.7 thou/uL (0.0-0.7); #Monocytes 0.9 thou/uL (0.11-0.59); #Neutrophils 4.9 thou/uL (1.40-6.50); %Basophils 2.4 % (0.0-1.0); %Eosinophils 19.3 % (0.0-10.0); %Lymphocytes 12.2 % (21.0-51.0); %Monocytes 10.4 % (0.0-10.0); %Neutrophils 55.4 % (42.0-75.0); Hematocrit 34.5 % (36.0-47.0); Hemoglobin 11.5 g/dL (12.0-16.0); Mean Corpuscular HGB CONC 33.3 g/dL (32.0-36.0); Mean Corpuscular Hemoglobin 32.5 pg (27.0-31.0); Mean Platelet Volume 14.6 fL (7.4-10.4); RBC Distribution Width 15.9 % (11.5-14.5); Red Blood Cell (RBC) Count 3.54 mill/uL (4.20-5.40); White Blood Cell (WBC) Count 8.8 10x3/uL (4.8-10.8)
[2022-11-15 05:23] LABS: Platelet Count 35 10x3/uL (130-400)
[2022-11-15 05:26] LABS: Mean Corpuscular Volume 97.5 fl (78.0-98.0)
[2022-11-15 05:47] LABS: ALT (SGPT) 30 U/L (8-55); AST (SGOT) 51 U/L (5-34); Albumin 3.3 g/dL (3.4-4.8); Alkaline Phosphatase 235 U/L (40-110); Anion Gap 12 mmol/L (10-20); BUN (Urea Nitrogen) 53 mg/dL (9.8-20.1); Bilirubin, Total 2.5 mg/dL (0.2-1.2); Calc. Creatinine Clearance 30 mL/min (70-130); Calcium 9.2 mg/dL (7.8-10.44); Carbon Dioxide 19 mmol/L (23-31); Chloride 113 mmol/L (98-107); Estimated GFR 23; Globulin 2.7 g/dL (2.4-3.5); Glucose 106 mg/dL (80-115); Potassium 3.4 mmol/L (3.5-5.1); Sodium 141 mmol/L (136-145)
[2022-11-15 05:53] LABS: CellaVision Operator ID lab.abc; Large Platelets 9.9 % (0-5); Platelet Adequacy Comment Platelets Decreased; RBC Morphology Within Normal Limits; Smudge Cells 17.8 %
[2022-11-15] MEDS: Nicotine 14 MG PATCH TD SCH (06:02)
[2022-11-15] MEDS: Sodium Bicarbonate Tab 325 MG TAB PO SCH ×3 (10:12→22:48)
[2022-11-15] MEDS: traMADol HCl 50 MG TAB PO SCH (10:12)
[2022-11-15] MEDS: Venlafaxine XR 37.5 MG CAP PO SCH (10:12)
[2022-11-15] MEDS: Rifaximin 200 MG TAB PO SCH ×2 (10:12→22:49)
[2022-11-15] MEDS: Midodrine HCl 5 MG TAB PO SCH ×3 (10:13→22:51)
[2022-11-15] MEDS: Metoprolol Tartrate 25 MG TAB PO SCH ×2 (10:13→22:52)
[2022-11-15] MEDS: Pregabalin 50 MG CAP PO SCH ×2 (10:13→22:53)
[2022-11-15] MEDS: Propranolol 10 MG TAB PO SCH ×2 (10:14→22:52)
[2022-11-15] MEDS: Insulin Glargine 30 UNITS/0.3 ML VIAL SC SCH ×2 (10:15→22:54)
[2022-11-16] MEDS: Nicotine 14 MG PATCH TD SCH (04:36)
[2022-11-16] MEDS ORDERED: Ondansetron ODT 4 MG TAB PO PRN (05:43)
[2022-11-16] MEDS ORDERED: Meclizine HCl 12.5 MG TAB PO PRN (05:43)
[2022-11-16] MEDS ORDERED: Ondansetron ODT 8 MG TAB SL PRN (05:43)
[2022-11-16 09:25] LABS: #Basophils 0.2 thou/uL (0.0-0.2); #Eosinphils 1.7 thou/uL (0.0-0.7); #Monocytes 0.9 thou/uL (0.11-0.59); #Neutrophils 5.8 thou/uL (1.40-6.50); %Basophils 1.9 % (0.0-1.0); %Eosinophils 17.4 % (0.0-10.0); %Lymphocytes 11.8 % (21.0-51.0); %Monocytes 9.5 % (0.0-10.0); %Neutrophils 58.8 % (42.0-75.0); Hematocrit 38.7 % (36.0-47.0); Hemoglobin 12.4 g/dL (12.0-16.0); Mean Corpuscular Hemoglobin 32.4 pg (27.0-31.0); Red Blood Cell (RBC) Count 3.83 mill/uL (4.20-5.40); White Blood Cell (WBC) Count 9.9 10x3/uL (4.8-10.8)
[2022-11-16 09:28] LABS: Platelet Count 23 10x3/uL (130-400)
[2022-11-16 09:48] LABS: ALT (SGPT) 30 U/L (8-55); AST (SGOT) 72 U/L (5-34); Albumin 3.3 g/dL (3.4-4.8); Alkaline Phosphatase 261 U/L (40-110); Anion Gap 14 mmol/L (10-20); BUN (Urea Nitrogen) 50 mg/dL (9.8-20.1); Bilirubin, Total 2.2 mg/dL (0.2-1.2); Calc. Creatinine Clearance 29 mL/min (70-130); Calcium 8.9 mg/dL (7.8-10.44); Carbon Dioxide 18 mmol/L (23-31); Chloride 110 mmol/L (98-107); Estimated GFR 22; Globulin 3.6 g/dL (2.4-3.5); Glucose 207 mg/dL (80-115); Potassium 4.9 mmol/L (3.5-5.1); Protein, Total 6.9 g/dL (5.8-8.1); Sodium 137 mmol/L (136-145)
[2022-11-16] MEDS: Rifaximin 200 MG TAB PO SCH (09:56)
[2022-11-16] MEDS: Sodium Bicarbonate Tab 325 MG TAB PO SCH ×2 (09:58→14:18)
[2022-11-16] MEDS: Pregabalin 50 MG CAP PO SCH (09:59)
[2022-11-16] MEDS: Ferrous Sulfate 325 MG TAB PO SCH (10:00)
[2022-11-16] MEDS: Midodrine HCl 5 MG TAB PO SCH ×2 (10:02→14:18)
[2022-11-16] MEDS: traMADol HCl 50 MG TAB PO SCH (10:02)
[2022-11-16] MEDS: Venlafaxine XR 37.5 MG CAP PO SCH (10:02)
[2022-11-16] MEDS: Propranolol 10 MG TAB PO SCH (10:04)
[2022-11-16] MEDS: Metoprolol Tartrate 25 MG TAB PO SCH (10:04)
[2022-11-16] MEDS: Insulin Glargine 30 UNITS/0.3 ML VIAL SC SCH (10:04)
[2022-11-16] MEDS: HumaLOG 300 UNITS/3 ML VIAL SC PRN (13:05)
[2022-11-16 16:10] VITALS: TEMP 97.2
[2022-11-16 16:51] VITALS: BP 111/56
== END 2022-11-16 17:55 | DRG 441 ==
LOC: ERS 18:26 → ERHOLD 11-02 01:53 → 2SE 11-02 05:29
PROVIDERS: ADMIT Family Medicine; ATTEND Family Medicine
PROC: 0W9G3ZZ Drainage of Peritoneal Cavity, Percutaneous Approach (ICD-10-PCS; principal; 2022-11-05)
PROC: 30233J1 Transfusion of Nonautologous Serum Albumin into Peripheral Vein, Percutaneous Approach (ICD-10-PCS; 2022-11-05)
PROC: 0W9G3ZZ Drainage of Peritoneal Cavity, Percutaneous Approach (ICD-10-PCS; 2022-11-12)
DX: K76.82 Hepatic encephalopathy (principal); G93.41 Metabolic encephalopathy; I50.22 Chronic systolic (congestive) heart failure; E72.20 Disorder of urea cycle metabolism, unspecified; N17.9 Acute kidney failure, unspecified; N18.4 Chronic kidney disease, stage 4 (severe); D68.9 Coagulation defect, unspecified; E87.1 Hypo-osmolality and hyponatremia; I47.20 Ventricular tachycardia, unspecified; E87.0 Hyperosmolality and hypernatremia; E87.20 Acidosis, unspecified; I42.8 Other cardiomyopathies; I13.0 Hypertensive heart and chronic kidney disease with heart failure and stage 1 through stage 4 chronic kidney disease, or unspecified chronic kidney disease; K70.31 Alcoholic cirrhosis of liver with ascites; F10.10 Alcohol abuse, uncomplicated; F32.A Depression, unspecified; F41.9 Anxiety disorder, unspecified; F43.10 Post-traumatic stress disorder, unspecified; G89.29 Other chronic pain; F17.210 Nicotine dependence, cigarettes, uncomplicated; D69.6 Thrombocytopenia, unspecified; E11.22 Type 2 diabetes mellitus with diabetic chronic kidney disease; E11.65 Type 2 diabetes mellitus with hyperglycemia; Z66 Do not resuscitate; Z91.148 Patient's other noncompliance with medication regimen for other reason; G47.00 Insomnia, unspecified; E78.00 Pure hypercholesterolemia, unspecified; Z90.710 Acquired absence of both cervix and uterus; Z90.49 Acquired absence of other specified parts of digestive tract; Z88.8 Allergy status to other drugs, medicaments and biological substances; Z79.4 Long term (current) use of insulin; Z79.899 Other long term (current) drug therapy; Z98.890 Other specified postprocedural states; Z95.810 Presence of automatic (implantable) cardiac defibrillator
CPT/HCPCS: 36415; 36416; 49083; 51701; 70450; 71045; 76705; 80053; 81001; 82010; 82140; 82550; 82805; 83036; 83605; 83690; 83735; 83880; 83930; 84443; 84484; 85025; 85610; 85730; 87040; 87077; 87086; 87186; 93005; 96374; C9113; J0696; J1815; J1885; J3475; J3490; J7120; P9047; Q0162

== ENCOUNTER 2022-11-19 12:53 | Day surgery (SDC) | payer MEDICARE, MEDICAID ==
[2022-11-19] MEDS ORDERED: Sodium Bicarbonate 2.5 MEQ/5 ML VIAL ONE (13:06)
[2022-11-19] MEDS ORDERED: Albumin 25% 100 ML ONE (13:06)
[2022-11-19] MEDS ORDERED: Lidocaine 1% PF 5 ML VIAL ONE (13:06)
[2022-11-19 13:29] LABS: #Basophils 0.1 thou/uL (0.0-0.2); #Monocytes 0.5 thou/uL (0.11-0.59); #Neutrophils 6.2 thou/uL (1.40-6.50); %Basophils 1.3 % (0.0-1.0); %Lymphocytes 10.6 % (21.0-51.0); %Monocytes 6.1 % (0.0-10.0); %Neutrophils 70.8 % (42.0-75.0); Hematocrit 39.6 % (36.0-47.0); Hemoglobin 13.2 g/dL (12.0-16.0); Mean Corpuscular HGB CONC 33.3 g/dL (32.0-36.0); Mean Corpuscular Hemoglobin 32.2 pg (27.0-31.0); Mean Corpuscular Volume 96.6 fl (78.0-98.0); RBC Distribution Width 15.8 % (11.5-14.5); White Blood Cell (WBC) Count 8.7 10x3/uL (4.8-10.8)
[2022-11-19 13:41] LABS: Platelet Count 38 10x3/uL (130-400)
[2022-11-19 13:47] LABS: ALT (SGPT) 32 U/L (8-55); AST (SGOT) 59 U/L (5-34); Albumin 3.4 g/dL (3.4-4.8); Alkaline Phosphatase 313 U/L (40-110); Anion Gap 18 mmol/L (10-20); BUN (Urea Nitrogen) 51 mg/dL (9.8-20.1); Bilirubin, Total 3.1 mg/dL (0.2-1.2); Calc. Creatinine Clearance 0 mL/min (70-130); Calcium 8.8 mg/dL (7.8-10.44); Carbon Dioxide 15 mmol/L (23-31); Chloride 111 mmol/L (98-107); Estimated GFR 24; Globulin 3.1 g/dL (2.4-3.5); Glucose 189 mg/dL (80-115); Potassium 3.6 mmol/L (3.5-5.1); Protein, Total 6.5 g/dL (5.8-8.1); Sodium 140 mmol/L (136-145)
[2022-11-19 15:12] VITALS: BP 127/55; TEMP 97.4
== END 2022-11-19 15:10 ==
LOC: ULT 12:53
PROVIDERS: ATTEND Physician Assistant Medical
PROC: 0W9G3ZZ Drainage of Peritoneal Cavity, Percutaneous Approach (ICD-10-PCS; principal; 2022-11-19)
DX: K70.31 Alcoholic cirrhosis of liver with ascites (principal)
CPT/HCPCS: 49083; 80053; 82140; 85025; P9047; 36415

== ENCOUNTER 2022-11-26 12:20 | Day surgery (SDC) | payer MEDICARE, MEDICAID ==
[2022-11-26] MEDS ORDERED: Lidocaine 1% PF 5 ML VIAL ONE (12:32)
[2022-11-26] MEDS ORDERED: Albumin 25% 0 ML ONE (12:32)
[2022-11-26] MEDS ORDERED: Sodium Bicarbonate 2.5 MEQ/5 ML VIAL ONE (12:32)
== END 2022-11-26 13:15 | disposition admitted as inpatient to this hospital (09) ==
LOC: ULT 12:20
PROVIDERS: ATTEND Physician Assistant Medical
DX: K70.31 Alcoholic cirrhosis of liver with ascites (principal); Z53.9 Procedure and treatment not carried out, unspecified reason
CPT/HCPCS: 36416; P9047

== ENCOUNTER 2022-11-26 13:10 | Inpatient (IN) | payer MEDICARE, MEDICAID ==
[2022-11-26 15:29] LABS: #Basophils 0.2 thou/uL (0.0-0.2); #Monocytes 0.7 thou/uL (0.11-0.59); #Neutrophils 4.4 thou/uL (1.40-6.50); %Basophils 2.5 % (0.0-1.0); %Eosinophils 13.6 % (0.0-10.0); %Lymphocytes 13.4 % (21.0-51.0); %Monocytes 10.1 % (0.0-10.0); %Neutrophils 60.1 % (42.0-75.0); Hematocrit 36.2 % (36.0-47.0); Hemoglobin 12.3 g/dL (12.0-16.0); Mean Corpuscular Hemoglobin 32.5 pg (27.0-31.0); Mean Corpuscular Volume 95.5 fl (78.0-98.0); RBC Distribution Width 15.7 % (11.5-14.5); Red Blood Cell (RBC) Count 3.79 mill/uL (4.20-5.40); White Blood Cell (WBC) Count 7.2 10x3/uL (4.8-10.8)
[2022-11-26 15:30] LABS: Platelet Count 39 10x3/uL (130-400)
[2022-11-26 15:52] LABS: Actual Bicarbonate (HCO3v) 16.3 mEq/L (22-28); Calcium, Ionized (venous) 1.08 mmol/L (1.16-1.32); Chloride (VBG) 113 mmol/L (98-106); Hematocrit-VBG 39 % (36.0-47.0); Hemoglobin (Hb) 13.2 g/dL (11.7-16.0); Sodium 142.5 mmol/L (133-146); pH (venous) 7.443 (7.32-7.43)
[2022-11-26 15:58] LABS: ALT (SGPT) 29 U/L (8-55); AST (SGOT) 47 U/L (5-34); Albumin 3.2 g/dL (3.4-4.8); Alkaline Phosphatase 208 U/L (40-110); Anion Gap 16 mmol/L (10-20); BUN (Urea Nitrogen) 41 mg/dL (9.8-20.1); Bilirubin, Total 2.3 mg/dL (0.2-1.2); Calc. Creatinine Clearance 0 mL/min (70-130); Carbon Dioxide 14 mmol/L (23-31); Chloride 111 mmol/L (98-107); Estimated GFR 20; Globulin 3.2 g/dL (2.4-3.5); Glucose 64 mg/dL (80-115); Potassium 2.8 mmol/L (3.5-5.1); Protein, Total 6.4 g/dL (5.8-8.1); Sodium 138 mmol/L (136-145)
[2022-11-26 15:59] LABS: Acetaminophen Less than 10 mcg/mL (10.0-30.0); Alcohol Less than 10.0 mg/dL (Less than 10); Lipase 90 U/L (8-78); Salicylate Less than 8.0 mg/dL (15.0-30.0)
[2022-11-26] MEDS ORDERED: cefTRIAXone (ROCEPHIN) 1 GM VIAL ONE (19:34)
[2022-11-26] MEDS ORDERED: Ondansetron ODT 4 MG TAB PO PRN (20:19)
[2022-11-26] MEDS ORDERED: Meclizine HCl 12.5 MG TAB PO PRN (20:19)
[2022-11-26] MEDS ORDERED: Cyclobenzaprine 10 MG TAB PO PRN (20:28)
[2022-11-26 20:46] LABS: Fluid, Glucose 87 mg/dL (Not Available); Fluid, Protein Less than 1.0 g/dL (Not Available)
[2022-11-26 20:59] LABS: RBC Count-Automated (BF) 3283 /cu.mm; WBC/Nucleated-Auto (BF) 120 /cu.mm
[2022-11-26] MEDS ORDERED: Dextrose 5% in Water 1,000 ML IV PRN (20:59)
[2022-11-26] MEDS ORDERED: Dextrose 50% Abboject 50 ML SYRINGE SLOW IVP PRN (20:59)
[2022-11-26] MEDS ORDERED: Insulin Regular 300 UNITS/3 ML VIAL SC PRN (20:59)
[2022-11-26] MEDS ORDERED: Glucagon 1 MG/ML KIT IM PRN (20:59)
[2022-11-26 21:00] LABS: Magnesium 1.8 mg/dL (1.6-2.6)
[2022-11-26] MEDS ORDERED: Pregabalin 50 MG CAP PO SCH (21:00)
[2022-11-26] MEDS ORDERED: Rifaximin 550 MG TAB PO SCH (21:00)
[2022-11-26 21:14] LABS: Body Fluid Source Paracentesis Fluid; Clarity Hazy (Clear)
[2022-11-26 21:15] LABS: BF Color Yellow
[2022-11-26] MEDS: Potassium Chloride 20 MEQ in Premix Bag 1 BAG IVPB SCH ×2 (21:44→23:18)
[2022-11-26] MEDS: Midodrine HCl 5 MG TAB PO SCH (21:57)
[2022-11-26] MEDS: Rifaximin 200 MG TAB PO SCH (21:58)
[2022-11-26] MEDS: Sodium Bicarbonate Tab 325 MG TAB PO SCH (21:58)
[2022-11-26] MEDS: Nicotine 14 MG PATCH TD SCH (22:01)
[2022-11-26 22:05] VITALS: BMI 25.8
[2022-11-26 22:19] LABS: INR-International Normal Ratio 1.3; Prothrombin Time 16.8 sec (12.0-14.7)
[2022-11-26 22:20] LABS: PTT 43.4 sec (22.9-36.1)
[2022-11-26] MEDS ORDERED: Lactulose 10 GM/15 ML Oral Solution PR SCH (22:30)
[2022-11-26 22:31] LABS: Troponin I 0.024 ng/mL (< 0.028)
[2022-11-26 23:21] LABS: Tube # 2
[2022-11-27 01:10] LABS: BF Segmented Neutrophils 11 %; Cell Count Non Hematic 34 %; Lymphocytes 55 %
[2022-11-27 04:10] LABS: #Basophils 0.1 thou/uL (0.0-0.2); #Eosinphils 0.7 thou/uL (0.0-0.7); #Monocytes 0.5 thou/uL (0.11-0.59); #Neutrophils 3.6 thou/uL (1.40-6.50); %Basophils 2.3 % (0.0-1.0); %Eosinophils 12.2 % (0.0-10.0); %Lymphocytes 12.5 % (21.0-51.0); %Monocytes 8.9 % (0.0-10.0); %Neutrophils 63.7 % (42.0-75.0); Hematocrit 38.7 % (36.0-47.0); Hemoglobin 12.9 g/dL (12.0-16.0); Mean Corpuscular HGB CONC 33.3 g/dL (32.0-36.0); Mean Corpuscular Hemoglobin 31.9 pg (27.0-31.0); Mean Corpuscular Volume 95.8 fl (78.0-98.0); RBC Distribution Width 15.3 % (11.5-14.5); Red Blood Cell (RBC) Count 4.04 mill/uL (4.20-5.40); White Blood Cell (WBC) Count 5.6 10x3/uL (4.8-10.8)
[2022-11-27 04:31] LABS: ALT (SGPT) 26 U/L (8-55); AST (SGOT) 46 U/L (5-34); Albumin 3.1 g/dL (3.4-4.8); Alkaline Phosphatase 202 U/L (40-110); Anion Gap 13 mmol/L (10-20); BUN (Urea Nitrogen) 40 mg/dL (9.8-20.1); Bilirubin, Total 2.5 mg/dL (0.2-1.2); Calc. Creatinine Clearance 30 mL/min (70-130); Carbon Dioxide 18 mmol/L (23-31); Chloride 114 mmol/L (98-107); Estimated GFR 24; Globulin 3.1 g/dL (2.4-3.5); Glucose 63 mg/dL (80-115); Potassium 3.3 mmol/L (3.5-5.1); Protein, Total 6.2 g/dL (5.8-8.1); Sodium 142 mmol/L (136-145)
[2022-11-27 04:33] LABS: Platelet Count 34 10x3/uL (130-400)
[2022-11-27 05:52] LABS: Amphetamine Not Detected (NotDetected); Barbiturates Screen Not Detected (NotDetected); Benzodiazepine Screen Not Detected (NotDetected); Cocaine Metabolite Screen Not Detected (NotDetected); Methadone Not Detected (NotDetected); Methamphetamine Not Detected (NotDetected); Opiate Screen Not Detected (NotDetected); Oxycodone Screen Not Detected (NotDetected); Phencyclidine (PCP) Not Detected (NotDetected); THC/Cannabinoid Screen Not Detected (NotDetected); Tricyclic Screen Not Detected (NotDetected)
[2022-11-27 06:01] LABS: Bacteria/HPF None Seen HPF (None Seen); Bilirubin Negative (Negative); Blood, Urine 2+ (Negative); CAUTI Indications for Culture Alt mental st,lethar; Clarity Turbid (Clear); Glucose, Urine (Dipstick) Normal (Negative); Ketone, Urine 10 mg/dL (Negative); Leukocyte Negative Leu/uL (Negative); Nitrite Negative (Negative); Protein, Urine (Dipstick) 10 mg/dL (Neg-Trace); Specific Gravity, Urine 1.045 (1.002-1.036); Urobilinogen Normal mg/dL (Less than 2)
[2022-11-27 07:04] LABS: Urine Culture Reflex No No
[2022-11-27] MEDS ORDERED: Potassium Chloride 20 MEQ TAB PO SCH (08:15)
[2022-11-27 08:28] LABS: Phosphorus 3.5 mg/dL (2.3-4.7)
[2022-11-27 08:30] LABS: Magnesium 1.8 mg/dL (1.6-2.6)
[2022-11-27] MEDS ORDERED: Acetaminophen 325 MG TAB PO PRN (09:41)
[2022-11-27] MEDS: Sodium Bicarbonate Tab 325 MG TAB PO SCH ×3 (09:44→20:35)
[2022-11-27] MEDS: Rifaximin 200 MG TAB PO SCH ×2 (09:44→20:36)
[2022-11-27] MEDS: Midodrine HCl 5 MG TAB PO SCH ×3 (09:45→20:35)
[2022-11-27] MEDS: Ferrous Sulfate 325 MG TAB PO SCH (09:46)
[2022-11-27] MEDS: Furosemide 40 MG TAB PO SCH (09:46)
[2022-11-27] MEDS: metFORMIN 500 MG TAB PO SCH (09:46)
[2022-11-27] MEDS: Venlafaxine XR 37.5 MG CAP PO SCH (09:46)
[2022-11-27] MEDS ORDERED: Albumin 25% 25 GM/100 ML BOT IVPB SCH (11:15)
[2022-11-27] MEDS: Magnesium Oxide 400 MG TAB PO SCH ×2 (12:32→20:36)
[2022-11-27] MEDS: Nicotine 14 MG PATCH TD SCH (20:38)
[2022-11-28 03:58] LABS: #Basophils 0.1 thou/uL (0.0-0.2); #Eosinphils 0.7 thou/uL (0.0-0.7); #Monocytes 0.6 thou/uL (0.11-0.59); #Neutrophils 3.1 thou/uL (1.40-6.50); %Basophils 1.9 % (0.0-1.0); %Eosinophils 13.2 % (0.0-10.0); %Lymphocytes 15.5 % (21.0-51.0); %Monocytes 10.8 % (0.0-10.0); %Neutrophils 58.4 % (42.0-75.0); Hemoglobin 11.4 g/dL (12.0-16.0); Mean Corpuscular HGB CONC 33.5 g/dL (32.0-36.0); Mean Corpuscular Volume 95.5 fl (78.0-98.0); RBC Distribution Width 15.3 % (11.5-14.5); Red Blood Cell (RBC) Count 3.56 mill/uL (4.20-5.40); White Blood Cell (WBC) Count 5.3 10x3/uL (4.8-10.8)
[2022-11-28 04:10] LABS: Platelet Count 28 10x3/uL (130-400)
[2022-11-28 04:20] LABS: ALT (SGPT) 22 U/L (8-55); AST (SGOT) 39 U/L (5-34); Albumin 3.5 g/dL (3.4-4.8); Alkaline Phosphatase 168 U/L (40-110); Anion Gap 14 mmol/L (10-20); BUN (Urea Nitrogen) 41 mg/dL (9.8-20.1); Bilirubin, Total 2.1 mg/dL (0.2-1.2); Calc. Creatinine Clearance 27 mL/min (70-130); Carbon Dioxide 19 mmol/L (23-31); Chloride 115 mmol/L (98-107); Estimated GFR 22; Globulin 2.6 g/dL (2.4-3.5); Glucose 138 mg/dL (80-115); Magnesium 1.7 mg/dL (1.6-2.6); Potassium 3.4 mmol/L (3.5-5.1); Protein, Total 6.1 g/dL (5.8-8.1); Sodium 145 mmol/L (136-145)
[2022-11-28 04:22] LABS: Phosphorus 2.6 mg/dL (2.3-4.7)
[2022-11-28] MEDS ORDERED: Potassium Chloride 20 MEQ TAB PO SCH (09:00)
[2022-11-28] MEDS: Venlafaxine XR 37.5 MG CAP PO SCH (09:31)
[2022-11-28] MEDS: Rifaximin 200 MG TAB PO SCH ×2 (09:31→21:17)
[2022-11-28] MEDS: Sodium Bicarbonate Tab 325 MG TAB PO SCH ×3 (09:31→21:17)
[2022-11-28] MEDS: metFORMIN 500 MG TAB PO SCH (09:31)
[2022-11-28] MEDS: Pregabalin 50 MG CAP PO SCH ×2 (09:32→21:17)
[2022-11-28] MEDS: Magnesium Oxide 400 MG TAB PO SCH ×2 (09:35→21:18)
[2022-11-28] MEDS: Furosemide 40 MG TAB PO SCH (09:36)
[2022-11-28] MEDS: Midodrine HCl 5 MG TAB PO SCH ×3 (09:41→21:18)
[2022-11-28] MEDS: Insulin Regular 300 UNITS/3 ML VIAL SC PRN ×2 (12:51→18:41)
[2022-11-28] MEDS: Nicotine 14 MG PATCH TD SCH (21:17)
[2022-11-29 04:08] LABS: #Basophils 0.1 thou/uL (0.0-0.2); #Eosinphils 0.7 thou/uL (0.0-0.7); #Monocytes 0.7 thou/uL (0.11-0.59); #Neutrophils 4.3 thou/uL (1.40-6.50); %Basophils 2.1 % (0.0-1.0); %Eosinophils 9.8 % (0.0-10.0); %Lymphocytes 13.4 % (21.0-51.0); %Monocytes 9.8 % (0.0-10.0); %Neutrophils 64.6 % (42.0-75.0); Hematocrit 38.6 % (36.0-47.0); Hemoglobin 12.7 g/dL (12.0-16.0); Mean Corpuscular HGB CONC 32.9 g/dL (32.0-36.0); Mean Corpuscular Hemoglobin 31.8 pg (27.0-31.0); Mean Corpuscular Volume 96.7 fl (78.0-98.0); RBC Distribution Width 15.3 % (11.5-14.5); Red Blood Cell (RBC) Count 3.99 mill/uL (4.20-5.40); White Blood Cell (WBC) Count 6.7 10x3/uL (4.8-10.8)
[2022-11-29 04:13] LABS: Platelet Count 32 10x3/uL (130-400)
[2022-11-29 04:26] LABS: Phosphorus 2.7 mg/dL (2.3-4.7)
[2022-11-29 04:30] LABS: ALT (SGPT) 26 U/L (8-55); AST (SGOT) 47 U/L (5-34); Albumin 3.9 g/dL (3.4-4.8); Alkaline Phosphatase 213 U/L (40-110); Anion Gap 18 mmol/L (10-20); BUN (Urea Nitrogen) 37 mg/dL (9.8-20.1); Bilirubin, Total 2.4 mg/dL (0.2-1.2); Calc. Creatinine Clearance 27 mL/min (70-130); Calcium 9.6 mg/dL (7.8-10.44); Carbon Dioxide 19 mmol/L (23-31); Chloride 112 mmol/L (98-107); Estimated GFR 22; Globulin 3.2 g/dL (2.4-3.5); Glucose 127 mg/dL (80-115); Magnesium 1.8 mg/dL (1.6-2.6); Protein, Total 7.1 g/dL (5.8-8.1); Sodium 145 mmol/L (136-145)
[2022-11-29 07:54] VITALS: TEMP 98.3
[2022-11-29] MEDS ORDERED: Magnesium 2 GM/50 ML(in water) 1 GM in Premix Bag 1 BAG IVPB SCH (09:00)
[2022-11-29] MEDS: metFORMIN 500 MG TAB PO SCH (09:01)
[2022-11-29] MEDS: Pregabalin 50 MG CAP PO SCH (09:01)
[2022-11-29] MEDS: Ferrous Sulfate 325 MG TAB PO SCH (09:01)
[2022-11-29] MEDS: Midodrine HCl 5 MG TAB PO SCH ×2 (09:02→14:11)
[2022-11-29] MEDS: Furosemide 40 MG TAB PO SCH (09:02)
[2022-11-29] MEDS: Venlafaxine XR 37.5 MG CAP PO SCH (09:03)
[2022-11-29] MEDS: Sodium Bicarbonate Tab 325 MG TAB PO SCH ×2 (09:03→14:11)
[2022-11-29] MEDS: Rifaximin 200 MG TAB PO SCH (10:55)
[2022-11-29 11:29] VITALS: BP 134/65
[2022-11-29] MEDS ORDERED: Insulin Glargine 30 UNITS/0.3 ML VIAL SC SCH (21:00)
== END 2022-11-29 16:15 | DRG 441 ==
LOC: ERS 13:10 → 2NO 19:31
PROVIDERS: ADMIT Student in an Organized Health Care Education/Training Program; ATTEND Hospitalist
PROC: 0W9G3ZZ Drainage of Peritoneal Cavity, Percutaneous Approach (ICD-10-PCS; principal; 2022-11-26)
PROC: 30233J1 Transfusion of Nonautologous Serum Albumin into Peripheral Vein, Percutaneous Approach (ICD-10-PCS; 2022-11-27)
DX: K76.82 Hepatic encephalopathy (principal); G93.41 Metabolic encephalopathy; I21.A1 Myocardial infarction type 2; I50.22 Chronic systolic (congestive) heart failure; E72.20 Disorder of urea cycle metabolism, unspecified; N18.4 Chronic kidney disease, stage 4 (severe); N17.9 Acute kidney failure, unspecified; I13.0 Hypertensive heart and chronic kidney disease with heart failure and stage 1 through stage 4 chronic kidney disease, or unspecified chronic kidney disease; K70.31 Alcoholic cirrhosis of liver with ascites; F32.A Depression, unspecified; F41.9 Anxiety disorder, unspecified; F43.10 Post-traumatic stress disorder, unspecified; G89.29 Other chronic pain; F17.210 Nicotine dependence, cigarettes, uncomplicated; D69.6 Thrombocytopenia, unspecified; E87.6 Hypokalemia; R77.8 Other specified abnormalities of plasma proteins; E11.649 Type 2 diabetes mellitus with hypoglycemia without coma; E11.22 Type 2 diabetes mellitus with diabetic chronic kidney disease; K59.00 Constipation, unspecified; Z66 Do not resuscitate; E83.42 Hypomagnesemia; E78.00 Pure hypercholesterolemia, unspecified; K72.10 Chronic hepatic failure without coma; Z90.710 Acquired absence of both cervix and uterus; Z88.8 Allergy status to other drugs, medicaments and biological substances; Z79.899 Other long term (current) drug therapy; Z79.84 Long term (current) use of oral hypoglycemic drugs; Z79.4 Long term (current) use of insulin; Z98.890 Other specified postprocedural states; Z95.810 Presence of automatic (implantable) cardiac defibrillator
CPT/HCPCS: 36415; 36416; 70450; 71045; 80053; 80306; 80307; 81001; 82140; 82805; 82945; 83605; 83690; 83735; 83880; 84100; 84157; 84443; 84484; 85025; 85060; 85610; 85730; 87070; 87205; 89051; 93005; 96365; J0696; J1611; J1815; J3475; J3480; P9047

== ENCOUNTER 2022-12-03 13:41 | Inpatient (IN) | payer MEDICARE, MEDICAID ==
[2022-12-03 15:04] LABS: #Basophils 0.1 thou/uL (0.0-0.2); #Eosinphils 0.7 thou/uL (0.0-0.7); #Monocytes 0.6 thou/uL (0.11-0.59); #Neutrophils 3.7 thou/uL (1.40-6.50); %Basophils 2.1 % (0.0-1.0); %Lymphocytes 13.6 % (21.0-51.0); %Monocytes 9.5 % (0.0-10.0); %Neutrophils 62.6 % (42.0-75.0); Hematocrit 37.8 % (36.0-47.0); Hemoglobin 12.3 g/dL (12.0-16.0); Mean Corpuscular HGB CONC 32.5 g/dL (32.0-36.0); Mean Corpuscular Hemoglobin 31.8 pg (27.0-31.0); Mean Corpuscular Volume 97.7 fl (78.0-98.0); Mean Platelet Volume 14.7 fL (7.4-10.4); RBC Distribution Width 14.9 % (11.5-14.5); Red Blood Cell (RBC) Count 3.87 mill/uL (4.20-5.40); White Blood Cell (WBC) Count 5.8 10x3/uL (4.8-10.8)
[2022-12-03 15:11] LABS: Platelet Count 33 10x3/uL (130-400)
[2022-12-03 15:28] LABS: ALT (SGPT) 23 U/L (8-55); AST (SGOT) 45 U/L (5-34); Albumin 3.3 g/dL (3.4-4.8); Alkaline Phosphatase 183 U/L (40-110); Anion Gap 19 mmol/L (10-20); BUN (Urea Nitrogen) 39 mg/dL (9.8-20.1); Bilirubin, Total 1.7 mg/dL (0.2-1.2); Calc. Creatinine Clearance 0 mL/min (70-130); Calcium 8.6 mg/dL (7.8-10.44); Carbon Dioxide 21 mmol/L (23-31); Chloride 111 mmol/L (98-107); Estimated GFR 23; Globulin 3.1 g/dL (2.4-3.5); Glucose 211 mg/dL (80-115); Potassium 3.6 mmol/L (3.5-5.1); Protein, Total 6.4 g/dL (5.8-8.1); Sodium 147 mmol/L (136-145)
[2022-12-03 15:34] LABS: Bacteria/HPF None Seen HPF (None Seen); Bilirubin Negative (Negative); Blood, Urine Negative (Negative); CAUTI Indications for Culture Alt mental st,lethar; Clarity Clear (Clear); Glucose, Urine (Dipstick) Normal (Negative); Ketone, Urine Negative (Negative); Leukocyte Negative Leu/uL (Negative); Nitrite Negative (Negative); Protein, Urine (Dipstick) Negative (Neg-Trace); RBC/HPF 0-3 HPF (0-3); Specific Gravity, Urine 1.013 (1.002-1.036); Squamous Epithelial 0-3 HPF (0-3); Urobilinogen Normal mg/dL (Less than 2); WBC/HPF 0-3 HPF (0-3); pH, Urine 5.5 (5.0-9.0)
[2022-12-03 15:35] LABS: Urine Culture Reflex No No
[2022-12-03] MEDS ORDERED: Dextrose 5% in Water 1,000 ML IV PRN (17:25)
[2022-12-03] MEDS ORDERED: Glucagon 1 MG/ML KIT IM PRN (17:25)
[2022-12-03] MEDS ORDERED: Insulin Regular 300 UNITS/3 ML VIAL SC PRN (17:25)
[2022-12-03] MEDS ORDERED: Dextrose 50% Abboject 50 ML SYRINGE SLOW IVP PRN (17:25)
[2022-12-03] MEDS ORDERED: Nicotine 14 MG PATCH TD SCH (17:30)
[2022-12-03] MEDS ORDERED: Lactulose 10 GM/15 ML Oral Solution PR SCH (17:30)
[2022-12-03 18:51] LABS: INR-International Normal Ratio 1.4; Prothrombin Time 17.9 sec (12.0-14.7)
[2022-12-03 18:57] LABS: Magnesium 1.5 mg/dL (1.6-2.6)
[2022-12-03] MEDS ORDERED: Nicotine 14 MG PATCH TD PRN (19:00)
[2022-12-03] MEDS ORDERED: Insulin Glargine 30 UNITS/0.3 ML VIAL SC SCH ×3 (21:00)
[2022-12-03 21:55] LABS: Amphetamine Not Detected (NotDetected); Barbiturates Screen Not Detected (NotDetected); Benzodiazepine Screen Not Detected (NotDetected); Cocaine Metabolite Screen Not Detected (NotDetected); Methadone Not Detected (NotDetected); Methamphetamine Not Detected (NotDetected); Opiate Screen Not Detected (NotDetected); Oxycodone Screen Not Detected (NotDetected); Phencyclidine (PCP) Not Detected (NotDetected); THC/Cannabinoid Screen Not Detected (NotDetected); Tricyclic Screen Not Detected (NotDetected)
[2022-12-03] MEDS ORDERED: Magnesium 2 GM/50 ML(in water) 2 GM in Premix Bag 1 BAG IVPB SCH (22:00)
[2022-12-03] MEDS: Ferrous Sulfate 325 MG TAB PO SCH (22:19)
[2022-12-03] MEDS: Metoprolol Tartrate 25 MG TAB PO SCH (22:20)
[2022-12-03] MEDS: Propranolol 10 MG TAB PO SCH (22:21)
[2022-12-03] MEDS: Pregabalin 50 MG CAP PO SCH (22:21)
[2022-12-03] MEDS: Sodium Bicarbonate Tab 325 MG TAB PO SCH (22:21)
[2022-12-03] MEDS: Rifaximin 200 MG TAB PO SCH (22:21)
[2022-12-03] MEDS: Midodrine HCl 5 MG TAB PO SCH (22:21)
[2022-12-04] MEDS ORDERED: Lactulose 10 GM/15 ML Oral Solution PR SCH (04:30)
[2022-12-04 04:42] VITALS: BMI 24.7
[2022-12-04 05:40] LABS: #Basophils 0.2 thou/uL (0.0-0.2); #Eosinphils 0.8 thou/uL (0.0-0.7); #Monocytes 0.6 thou/uL (0.11-0.59); #Neutrophils 3.2 thou/uL (1.40-6.50); %Basophils 2.8 % (0.0-1.0); %Eosinophils 14.1 % (0.0-10.0); %Lymphocytes 16.2 % (21.0-51.0); %Monocytes 10.5 % (0.0-10.0); %Neutrophils 56.2 % (42.0-75.0); Hematocrit 39.5 % (36.0-47.0); Hemoglobin 12.8 g/dL (12.0-16.0); Mean Corpuscular HGB CONC 32.4 g/dL (32.0-36.0); Mean Corpuscular Hemoglobin 32.1 pg (27.0-31.0); RBC Distribution Width 14.7 % (11.5-14.5); Red Blood Cell (RBC) Count 3.99 mill/uL (4.20-5.40); White Blood Cell (WBC) Count 5.7 10x3/uL (4.8-10.8)
[2022-12-04 05:41] LABS: Platelet Count 33 10x3/uL (130-400)
[2022-12-04 06:10] LABS: ALT (SGPT) 22 U/L (8-55); AST (SGOT) 38 U/L (5-34); Albumin 3.2 g/dL (3.4-4.8); Alkaline Phosphatase 179 U/L (40-110); Anion Gap 16 mmol/L (10-20); BUN (Urea Nitrogen) 40 mg/dL (9.8-20.1); Bilirubin, Total 1.9 mg/dL (0.2-1.2); Calc. Creatinine Clearance 31 mL/min (70-130); Calcium 8.7 mg/dL (7.8-10.44); Carbon Dioxide 22 mmol/L (23-31); Chloride 115 mmol/L (98-107); Estimated GFR 28; Glucose 113 mg/dL (80-115); Potassium 3.5 mmol/L (3.5-5.1); Protein, Total 6.2 g/dL (5.8-8.1); Sodium 149 mmol/L (136-145)
[2022-12-04 07:20] LABS: Magnesium 1.9 mg/dL (1.6-2.6); Phosphorus 3.3 mg/dL (2.3-4.7)
[2022-12-04] MEDS ORDERED: Lactated Ringer's 1,000 ML IV SCH (09:00)
[2022-12-04] MEDS: Propranolol 10 MG TAB PO SCH ×2 (09:05→21:39)
[2022-12-04] MEDS: Sodium Bicarbonate Tab 325 MG TAB PO SCH ×3 (09:05→21:38)
[2022-12-04] MEDS: Rifaximin 200 MG TAB PO SCH ×2 (09:05→21:37)
[2022-12-04] MEDS: metFORMIN 500 MG TAB PO SCH (09:06)
[2022-12-04] MEDS: Pregabalin 50 MG CAP PO SCH ×2 (09:06→21:38)
[2022-12-04] MEDS: Furosemide 40 MG TAB PO SCH (09:07)
[2022-12-04] MEDS: Midodrine HCl 5 MG TAB PO SCH ×3 (09:07→21:39)
[2022-12-04] MEDS: Metoprolol Tartrate 25 MG TAB PO SCH ×2 (09:07→21:39)
[2022-12-04] MEDS: Venlafaxine XR 37.5 MG CAP PO SCH (10:28)
[2022-12-05] MEDS: Rifaximin 200 MG TAB PO SCH ×2 (09:43→22:33)
[2022-12-05] MEDS: Sodium Bicarbonate Tab 325 MG TAB PO SCH ×3 (09:43→22:34)
[2022-12-05] MEDS: metFORMIN 500 MG TAB PO SCH (09:44)
[2022-12-05] MEDS: Pregabalin 50 MG CAP PO SCH ×2 (09:44→22:38)
[2022-12-05] MEDS: Propranolol 10 MG TAB PO SCH ×2 (09:45→22:34)
[2022-12-05] MEDS: Venlafaxine XR 37.5 MG CAP PO SCH (09:45)
[2022-12-05] MEDS: Midodrine HCl 5 MG TAB PO SCH ×3 (09:45→22:38)
[2022-12-05] MEDS: Furosemide 40 MG TAB PO SCH (09:45)
[2022-12-05] MEDS: Metoprolol Tartrate 25 MG TAB PO SCH ×2 (09:45→22:37)
[2022-12-05 09:52] LABS: #Basophils 0.2 thou/uL (0.0-0.2); #Eosinphils 0.7 thou/uL (0.0-0.7); #Monocytes 0.8 thou/uL (0.11-0.59); #Neutrophils 3.2 thou/uL (1.40-6.50); %Basophils 2.5 % (0.0-1.0); %Eosinophils 12.2 % (0.0-10.0); %Lymphocytes 18.6 % (21.0-51.0); %Monocytes 12.9 % (0.0-10.0); %Neutrophils 53.5 % (42.0-75.0); Hematocrit 39.2 % (36.0-47.0); Hemoglobin 12.8 g/dL (12.0-16.0); Mean Corpuscular HGB CONC 32.7 g/dL (32.0-36.0); Mean Platelet Volume 12.4 fL (7.4-10.4); RBC Distribution Width 14.7 % (11.5-14.5)
[2022-12-05 09:58] LABS: Platelet Count 69 10x3/uL (130-400)
[2022-12-05 10:14] LABS: ALT (SGPT) 20 U/L (8-55); AST (SGOT) 37 U/L (5-34); Albumin 2.9 g/dL (3.4-4.8); Alkaline Phosphatase 167 U/L (40-110); Anion Gap 17 mmol/L (10-20); BUN (Urea Nitrogen) 35 mg/dL (9.8-20.1); Bilirubin, Total 1.8 mg/dL (0.2-1.2); Calc. Creatinine Clearance 29 mL/min (70-130); Calcium 8.5 mg/dL (7.8-10.44); Carbon Dioxide 22 mmol/L (23-31); Chloride 109 mmol/L (98-107); Estimated GFR 26; Glucose 134 mg/dL (80-115); Potassium 3.5 mmol/L (3.5-5.1); Protein, Total 5.9 g/dL (5.8-8.1); Sodium 144 mmol/L (136-145)
[2022-12-05] MEDS: Ferrous Sulfate 325 MG TAB PO SCH (17:32)
[2022-12-05] MEDS: HumaLOG 300 UNITS/3 ML VIAL SC PRN ×2 (19:23→22:42)
[2022-12-06 06:31] LABS: Hematocrit 40.2 % (36.0-47.0); Hemoglobin 13.3 g/dL (12.0-16.0); Mean Corpuscular HGB CONC 33.1 g/dL (32.0-36.0); Mean Corpuscular Hemoglobin 31.7 pg (27.0-31.0); Mean Corpuscular Volume 95.9 fl (78.0-98.0); RBC Distribution Width 14.3 % (11.5-14.5); Red Blood Cell (RBC) Count 4.19 mill/uL (4.20-5.40); White Blood Cell (WBC) Count 5.9 10x3/uL (4.8-10.8)
[2022-12-06 06:56] LABS: ALT (SGPT) 23 U/L (8-55); AST (SGOT) 41 U/L (5-34); Albumin 3.2 g/dL (3.4-4.8); Alkaline Phosphatase 201 U/L (40-110); Anion Gap 16 mmol/L (10-20); BUN (Urea Nitrogen) 32 mg/dL (9.8-20.1); Bilirubin, Total 1.9 mg/dL (0.2-1.2); Calc. Creatinine Clearance 30 mL/min (70-130); Carbon Dioxide 19 mmol/L (23-31); Chloride 112 mmol/L (98-107); Estimated GFR 26; Globulin 3.2 g/dL (2.4-3.5); Glucose 128 mg/dL (80-115); Protein, Total 6.4 g/dL (5.8-8.1); Sodium 144 mmol/L (136-145)
[2022-12-06 07:01] LABS: Delete Auto Diff?? YES; Manual Diff?? YES; Platelet Count 36 10x3/uL (130-400)
[2022-12-06 07:37] LABS: Magnesium 1.6 mg/dL (1.6-2.6); Phosphorus 2.1 mg/dL (2.3-4.7)
[2022-12-06 07:43] LABS: CellaVision Operator ID LAB.GE; Eosinophils 17 % (0-10); Large Platelets 16.5 % (0-5); Lymphocytes 11 % (21-51); Monocytes 4 % (0-10); Neutrophil 63 % (42-75); Platelet Adequacy Comment Platelets Decreased; Polychromasia SLIGHT = 2-3 cells HPF (0-2); Total Cell Count 103
[2022-12-06] MEDS ORDERED: Potassium Chloride 20 MEQ TAB PO SCH (08:00)
[2022-12-06] MEDS: Pregabalin 50 MG CAP PO SCH ×2 (10:20→21:15)
[2022-12-06] MEDS: Sodium Bicarbonate Tab 325 MG TAB PO SCH ×3 (10:20→21:15)
[2022-12-06] MEDS: metFORMIN 500 MG TAB PO SCH (10:21)
[2022-12-06] MEDS: Midodrine HCl 5 MG TAB PO SCH ×3 (10:21→21:15)
[2022-12-06] MEDS: Propranolol 10 MG TAB PO SCH ×2 (10:21→21:15)
[2022-12-06] MEDS: Furosemide 40 MG TAB PO SCH (10:22)
[2022-12-06] MEDS: Metoprolol Tartrate 25 MG TAB PO SCH ×2 (10:54→21:15)
[2022-12-06] MEDS ORDERED: Spironolactone 100 MG TAB PO SCH (11:00)
[2022-12-06] MEDS: Venlafaxine XR 37.5 MG CAP PO SCH (11:09)
[2022-12-06] MEDS: Rifaximin 200 MG TAB PO SCH ×2 (11:09→21:32)
[2022-12-06] MEDS: Spironolactone 100 MG TAB PO SCH (11:09)
[2022-12-06] MEDS: HumaLOG 300 UNITS/3 ML VIAL SC PRN (21:18)
[2022-12-07 06:07] LABS: Anion Gap 16 mmol/L (10-20); BUN (Urea Nitrogen) 28 mg/dL (9.8-20.1); Calc. Creatinine Clearance 30 mL/min (70-130); Carbon Dioxide 18 mmol/L (23-31); Chloride 110 mmol/L (98-107); Estimated GFR 27; Glucose 130 mg/dL (80-115); Potassium 4.1 mmol/L (3.5-5.1); Sodium 140 mmol/L (136-145)
[2022-12-07] MEDS: Metoprolol Tartrate 25 MG TAB PO SCH ×2 (08:51→22:27)
[2022-12-07] MEDS: Sodium Bicarbonate Tab 325 MG TAB PO SCH ×3 (08:51→21:11)
[2022-12-07] MEDS: Pregabalin 50 MG CAP PO SCH ×2 (08:51→21:11)
[2022-12-07] MEDS: Propranolol 10 MG TAB PO SCH ×2 (08:51→22:27)
[2022-12-07] MEDS: Midodrine HCl 5 MG TAB PO SCH ×3 (08:52→21:12)
[2022-12-07] MEDS: Furosemide 40 MG TAB PO SCH (08:52)
[2022-12-07] MEDS: Venlafaxine XR 37.5 MG CAP PO SCH (08:52)
[2022-12-07] MEDS: Rifaximin 200 MG TAB PO SCH ×2 (11:06→21:11)
[2022-12-07] MEDS: HumaLOG 300 UNITS/3 ML VIAL SC PRN ×2 (13:06→18:31)
[2022-12-07] MEDS: Ferrous Sulfate 325 MG TAB PO SCH (15:37)
[2022-12-08] MEDS: HumaLOG 300 UNITS/3 ML VIAL SC PRN ×2 (06:39→13:23)
[2022-12-08] MEDS: Midodrine HCl 5 MG TAB PO SCH (09:04)
[2022-12-08] MEDS: Rifaximin 200 MG TAB PO SCH (09:04)
[2022-12-08] MEDS: Sodium Bicarbonate Tab 325 MG TAB PO SCH (09:04)
[2022-12-08] MEDS: Venlafaxine XR 37.5 MG CAP PO SCH (09:04)
[2022-12-08] MEDS: Spironolactone 100 MG TAB PO SCH (09:05)
[2022-12-08] MEDS: Pregabalin 50 MG CAP PO SCH (09:05)
[2022-12-08] MEDS: Metoprolol Tartrate 25 MG TAB PO SCH (09:05)
[2022-12-08] MEDS: Furosemide 40 MG TAB PO SCH (09:05)
[2022-12-08] MEDS: Propranolol 10 MG TAB PO SCH (09:06)
[2022-12-08 12:16] VITALS: BP 118/76; TEMP 98.2
[2022-12-08] MEDS ORDERED: Lorazepam 0.5 MG TAB PO SCH (13:15)
== END 2022-12-08 13:40 | disposition hospice, inpatient (51) | DRG 442 ==
LOC: ERS 13:41 → SURG B 16:42 → OBSVTOIN 16:59
PROVIDERS: ADMIT Family Medicine; ATTEND Family Medicine
DX: K76.82 Hepatic encephalopathy (principal); E72.20 Disorder of urea cycle metabolism, unspecified; I50.22 Chronic systolic (congestive) heart failure; I13.0 Hypertensive heart and chronic kidney disease with heart failure and stage 1 through stage 4 chronic kidney disease, or unspecified chronic kidney disease; N18.4 Chronic kidney disease, stage 4 (severe); E87.0 Hyperosmolality and hypernatremia; K72.10 Chronic hepatic failure without coma; F43.10 Post-traumatic stress disorder, unspecified; Z51.5 Encounter for palliative care; Z66 Do not resuscitate; G47.00 Insomnia, unspecified; F17.210 Nicotine dependence, cigarettes, uncomplicated; K70.30 Alcoholic cirrhosis of liver without ascites; E80.6 Other disorders of bilirubin metabolism; D69.6 Thrombocytopenia, unspecified; R53.81 Other malaise; E11.22 Type 2 diabetes mellitus with diabetic chronic kidney disease; E11.65 Type 2 diabetes mellitus with hyperglycemia; I45.81 Long QT syndrome; F32.9 Major depressive disorder, single episode, unspecified; Z91.148 Patient's other noncompliance with medication regimen for other reason; Z95.810 Presence of automatic (implantable) cardiac defibrillator; Z83.3 Family history of diabetes mellitus; Z98.890 Other specified postprocedural states; Z88.8 Allergy status to other drugs, medicaments and biological substances; Z91.048 Other nonmedicinal substance allergy status; Z79.899 Other long term (current) drug therapy; Z79.84 Long term (current) use of oral hypoglycemic drugs
CPT/HCPCS: 36415; 36416; 51701; 70450; 71045; 80048; 80053; 80306; 81001; 82140; 83735; 84100; 85025; 85060; 85610; 93005; J1815; J3475

== ENCOUNTER → 2022-12-03 | Day surgery (SDC) | payer MEDICARE, MEDICAID ==
[~2022-12-03] MED LIST changes: +Albumin 25% 0 ML ONE; -Albumin 25% 100 ML ONE
== END ==
LOC: ULT 12:08
PROVIDERS: ATTEND Physician Assistant Medical
DX: K70.31 Alcoholic cirrhosis of liver with ascites (principal); Z53.9 Procedure and treatment not carried out, unspecified reason
CPT/HCPCS: P9047